=== PATIENT | female | born 1985 | race Caucasian/White ===

== ENCOUNTER 2017-10-31 20:50 | Outpatient (CLI) | payer MEDICAID, SELFPAY ==
[2017-10-31 21:14] VITALS: BMI 32.9
--- NOTE | 2017-10-31 21:33 | OB.TRI.NOTE ---
History of Present Illness Reason For Visit: DECREASED MOVEMENT Date of Service: 10/31/17 Gestational age: 36 History of Present Illness: 31yo G1 @ 35+ wga with c/o decreased movement. She last felt movement approximately 2 hours ago. She reports nausea and vomiting starting last night at 8pm and followed by diarrhea with chills and subjective fever. She had approximately 5-7 bouts of loose, watery stool. Last loose stool 3 hours ago. Denies recent antibiotics or exposure to C. diff. 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 She denies dysuria, urinary frequency, hematuria. She had scant blood in stool. No prior h/o hemorrhoids. +vaginal bleeding on underwear earlier today, but did not require a pad. Denies leaking of fluid or contractions, shortness of breath, cough, chest pain, sore throat. Home Medications Medication Instructions Recorded Docusate Sodium [Stool Softener] 50 mg PO DAILY 10/31/17 Pantoprazole Sodium [Protonix] 40 mg PO DAILY 10/31/17 Vits [Prenatabs FA] 1 tablet PO DAILY 10/31/17 Venlafaxine HCl [Effexor] 225 mg PO DAILY 10/31/17 Allergies amoxicillin Allergy (Verified 10/31/17 21:30) Hives acetaminophen [From Vicodin] Adverse Reaction (Verified 10/31/17 21:30) Other duloxetine [From Cymbalta] Adverse Reaction (Verified 10/31/17 21:30) Other hydrocodone [From Vicodin] Adverse Reaction (Verified 10/31/17 21:30) Other promethazine [From Phenergan] Adverse Reaction (Verified 10/31/17 21:30) Other - Pertinent Past Medical History Pertinent Past Medical History: Cholecystectomy Appendectomy Laparoscopy x 4 for endometriosis Laparotomy Physical Exam Vitals: Afebrile, P 116 bpm General: Alert, Oriented x3, Cooperative, No apparent distress Cardiovascular: Regular rate, Regular Rhythm, Normal S1, Normal S2 Lungs: Clear to auscultation, Normal air movement Abdomen: Soft, Non Tender, Non-Distended, Gravid Extremities:: No edema Estimated gestational size: Appropriate for gestational size Cervix Dilation (cm): 0 - SSE - cervical and vaginal normal appearing without lesions, no blood present Station: -3 Effacement (%): 0 NST - FHR Rate Baby A Baseline: 165 bpm Variability:: Moderate Accelerations:: 15 x 15 Decelerations:: None NST Reactive:: Yes FHR Category:: Category II Uterine Activity:: 1-2/10 min Impression/Plan 31yo G1 @ 35wga with gastroenteritis, decreased movement, Cat II FHR -Likely viral gastroenteritis - benign abdominal exam and nontender -Send U/A, CBC, CMP -IV fluid hydration -Continuous monitoring Code Visit Office Visits / Consults: [id number] OV L3 New
--- NOTE | 2017-10-31 21:43 | OB.TRI.HP_ITS ---
History of Present Illness Reason For Visit: DECREASED MOVEMENT Date of Service: 10/31/17 Gestational age: 36 History of Present Illness: 31yo G1 @ 35+ wga with c/o decreased movement. She last felt movement approximately 2 hours ago. She reports nausea and vomiting starting last night at 8pm and followed by diarrhea with chills and subjective fever. She had approximately 5-7 bouts of loose, watery stool. Last loose stool 3 hours ago. Denies recent antibiotics or exposure to C. diff. 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 She denies dysuria, urinary frequency, hematuria. She had scant blood in stool. No prior h/o hemorrhoids. +vaginal bleeding on underwear earlier today , but did not require a pad. Denies leaking of fluid or contractions, shortness of breath, cough, chest pain, sore throat. Home Medications Medication Instructions Recorded Docusate Sodium [Stool Softener] 50 mg PO DAILY 10/31/17 Pantoprazole Sodium [Protonix] 40 mg PO DAILY 10/31/17 Vits [Prenatabs FA] 1 tablet PO DAILY 10/31/17 Venlafaxine HCl [Effexor] 225 mg PO DAILY 10/31/17 Allergies amoxicillin Allergy (Verified 10/31/17 21:30) Hives acetaminophen [From Vicodin] Adverse Reaction (Verified 10/31/17 21:30) Other duloxetine [From Cymbalta] Adverse Reaction (Verified 10/31/17 21:30) Other hydrocodone [From Vicodin] Adverse Reaction (Verified 10/31/17 21:30) Other promethazine [From Phenergan] Adverse Reaction (Verified 10/31/17 21:30) Other - Pertinent Past Medical History Pertinent Past Medical History: Cholecystectomy Appendectomy Laparoscopy x 4 for endometriosis Laparotomy Physical Exam Vitals: Afebrile, P 116 bpm General: Alert, Oriented x3, Cooperative, No apparent distress Cardiovascular: Regular rate, Regular Rhythm, Normal S1, Normal S2 Lungs: Clear to auscultation, Normal air movement Abdomen: Soft, Non Tender, Non-Distended, Gravid Extremities:: No edema Estimated gestational size: Appropriate for gestational size Cervix Dilation (cm): 0 - SSE - cervical and vaginal normal appearing without lesions, no blood present Station: -3 Effacement (%): 0 NST - FHR Rate Baby A Baseline: 165 bpm Variability:: Moderate Accelerations:: 15 x 15 Decelerations:: None NST Reactive:: Yes FHR Category:: Category II Uterine Activity:: 1-2/10 min Impression/Plan 31yo G1 @ 35wga with gastroenteritis, decreased movement, Cat II FHR -Likely viral gastroenteritis - benign abdominal exam and nontender -Send U/A, CBC, CMP -IV fluid hydration -Continuous monitoring Code Visit Office Visits / Consults: [id number] OV L3 New
[2017-10-31] MEDS: Lactated Ringers 1,000 ML 250 ML IV ×2 (21:50→23:17)
[2017-10-31 22:00] LABS: Hematocrit 37.8 % (37-47); Hemoglobin 12.7 g/dl (12.0-15.0); Mean Corp Hgb Conc 33.6 g/gl (32-36); Mean Corpuscular Hgb 31.4 pg (27.0-32.0); Mean Corpuscular Volume 93.3 fL (81-99); Mean Platelet Vol. 11.3 fl (6.2-12.0); Platelet Count 220 K/mm3 (150-450); RBC Distribution Width CV 13.5 % (11.6-14.6); RBC Distribution Width SD 45.9 fl (35.1-43.9); Red Blood Count 4.05 M/mm3 (4.2-5.4); White Blood Count 9.7 K/mm3 (4.4-11.0)
[2017-10-31 22:01] LABS: Scan Indicated on CBC? Y/N NO
[2017-10-31 22:17] LABS: ALB/GLOB Ratio 0.6 RATIO (0.9-2.4); AST(SGOT) 35 U/L (15-37); Alanine Aminotransfer ALT/SGPT 29 U/L (13-56); Albumin, Serum 2.3 g/dL (3.2-5.0); Alkaline Phosphatase 256 U/L (45-117); Anion Gap 11 (5-15); BUN 8 mg/dL (7-18); Calcium,Total 8.7 mg/dL (8.5-10.1); Chloride 104 mmol/L (98-107); EST Glomerular Filtration Rate 89 mL/min (>60); Est Glom Filt Rate - Afr Amer 108 mL/min (>60); Estimated Creatinine Clearance 103.73 ml/min; Globulin 3.7 g/dL (2.2-4.2); Glucose 88 mg/dL (74-106); Potassium 3.7 mmol/L (3.5-5.1); Sodium Level 136 mmol/L (136-145)
[2017-10-31 22:58] LABS: Mucous, Urine 0 SEEN /hpf (<or=2+); Red Blood Cells-Urine 0 SEEN /hpf (0-5)
[2017-10-31 23:06] LABS: Color, Urine Straw (Yellow); Glucose, Dipstick Normal (Normal); Ketone-Dipstick Negative (Negative); Leukocyte Esterase-Dipstick Negative /ul (Negative); Nitrite-Dipstick Negative (Negative); Occult Blood-Urine Negative /ul (Negative); Protein-Dipstick Negative (Negative); Urine Bilirubin Dipstick Negative (Negative); Urine Clarity Sl. Cloudy (Clear); Urine Urobilinogen Normal (Normal); Urine pH 6.5 (5.0 - 8.0)
[2017-10-31 23:20] LABS: Bacteria 1+ /hpf (None Seen); Squamous Epithelial Cells - UA 0-5 SEEN /hpf (5-10)
[2017-10-31 23:21] LABS: White Blood Cells 0-5 SEEN /hpf (0-5)
[2017-10-31 23:22] LABS: Transitional Epithelial - Ur 0-5 SEEN /hpf (0-5)
--- NOTE | 2017-11-01 07:46 | OB.TRI.PN ---
Progress Notes DATE OF SERVICE: 11/01/17 Progress Note: Labs reviewed and wnl. IV fluid hydration administered with PO trial. No further bouts of vomiting or diarrhea during hospitalization and tolerated PO. Notified by RN at approximately 0130h that FHR improved to Cat I with tachycardia resolved. Patient discharged to home. On my review, NST 150, moderate variability, + accelerations, no deceleration. Contractions 2/10 min.
== END 2017-11-01 01:40 | disposition home or self-care (01) ==
LOC: WPOUT 21:10 → WP 21:11
PROVIDERS: Family Provider Family Medicine; PCP Family Medicine; Visit Provider Obstetrics & Gynecology
DX: O36.8130 Decreased fetal movements, third trimester, not applicable or unspecified (principal); O99.613 Diseases of the digestive system complicating pregnancy, third trimester; K52.9 Noninfective gastroenteritis and colitis, unspecified; K92.1 Melena; Z3A.35 35 weeks gestation of pregnancy
CPT/HCPCS: 96360; 36415; 59025; 59050; 80053; 81001; 85027; 99218; J7120; G0378

== ENCOUNTER → 2017-11-03 14:13 | Outpatient (CLI) | payer MEDICAID, SELFPAY ==
[2017-10-31 21:14] VITALS: BMI 32.9
[2017-11-03 16:56] LABS: Group B Strep DNA By PCR POSITIVE (Negative); Probe Check PASS
== END ==
PROVIDERS: Visit Provider Obstetrics & Gynecology
DX: Z36.85 Encounter for antenatal screening for Streptococcus B (principal)
CPT/HCPCS: 87653

== ENCOUNTER 2017-11-22 21:50 | Inpatient (IN) | payer MEDICAID, SELFPAY ==
[2017-11-22 15:25] VITALS: BMI 34.3
[2017-11-22 15:56] LABS: Color, Urine Yellow (Yellow); Glucose, Dipstick Normal (Normal); Ketone-Dipstick Negative (Negative); Leukocyte Esterase-Dipstick 25 /ul (Negative); Nitrite-Dipstick Negative (Negative); Occult Blood-Urine Negative /ul (Negative); Protein-Dipstick Negative (Negative); Specific Gravity, Urine 1.005 (1.002-1.030); Urine Bilirubin Dipstick Negative (Negative); Urine Clarity Clear (Clear); Urine Urobilinogen Normal (Normal)
[2017-11-22 16:25] LABS: Hematocrit 37.7 % (37-47); Hemoglobin 12.8 g/dl (12.0-15.0); Mean Corpuscular Hgb 31.6 pg (27.0-32.0); Mean Corpuscular Volume 93.1 fL (81-99); Mean Platelet Vol. 11.6 fl (6.2-12.0); Platelet Count 211 K/mm3 (150-450); RBC Distribution Width CV 13.2 % (11.6-14.6); RBC Distribution Width SD 43.3 fl (35.1-43.9); Red Blood Count 4.05 M/mm3 (4.2-5.4); White Blood Count 11.5 K/mm3 (4.4-11.0)
[2017-11-22 16:28] LABS: Scan Indicated on CBC? Y/N NO
[2017-11-22 16:43] LABS: AST(SGOT) 28 U/L (15-37); Alanine Aminotransfer ALT/SGPT 26 U/L (13-56); Creatinine, Serum 0.66 mg/dL (0.55-1.02); EST Glomerular Filtration Rate 111 mL/min (>60); Est Glom Filt Rate - Afr Amer 135 mL/min (>60); Estimated Creatinine Clearance 125.73 ml/min; Uric Acid 5.7 mg/dL (2.6-6.0)
[2017-11-22 16:53] LABS: Creatinine, Urine (random) < 13.00 mg/dL (NO RANGE EST.); Protein, Urine (Random) < 6.0 mg/dL (<11.9)
[2017-11-22 17:06] LABS: International Normalized Ratio 0.9; Partial Thromboplast Time 27.1 Seconds (24.1-36.2); Prothrombin Time (Protime)PT. 12.1 SECONDS (11.7-14.9)
[2017-11-22] MEDS: Nalbuphine 10 MG/ML Ampul IV (21:15)
[2017-11-22] MEDS: Methylergonovine 0.2 MG/ML Ampul IM (23:49)
[2017-11-22] MEDS: Oxytocin 30 units/NS 500 ml 30 UNITS/500 ML IV.SOLN 334 UNITS IV (23:50)
[2017-11-22] MEDS: miSOPROStol 200 MCG Tablet 400 MCG RECTAL (23:50)
--- NOTE | 2017-11-23 00:01 | PCM.OB.VAG ---
Vaginal Delivery Maternal Presentation: Active Labor Amniotic Membrane Rupture Type: Spontaneous Amniotic Fluid Description: Clear Final FUAD: 12/05/17 Final FUAD Source: US <20 weeks Gestational age: 38 Weeks and 2 Days Date of Procedure: 11/22/17 Pre-Operative Diagnosis: IUP Post-Operative Diagnosis: IUP Surgery/ Procedure Performed: Spontaneous Vaginal Delivery Type of Anesthesia: None Description of Procedure: Spontaneous vaginal delivery of a viable female with Apgars of 8/9 with a 3 vessel normal placenta with cord around the neck ?1 tight. No episiotomy. First-degree midline laceration repaired with 3-0 rapide suture. Sponge counts okay. Delivery physician: Tin Mccormick MD. Presentation: Vertex Placental Delivery Description: Spontaneous Placenta Disposition: [facility] Cord Vessel Description: 3 Vessels Cord Gases drawn per routine: ABG Cord Entanglement: Around neck x 1, tight Estimated Blood Loss: 250 cc Infant A gender: Female (1 minute): 8 (5 minute): 9 Episiotomy Description: None Laceration: Midline, Perineal Extension/lac, 1st degree Medications given after delivery: IV Pitocin, - - 400 mg rectal Cytotec Complications: None
--- NOTE | 2017-11-23 00:06 | DCINST_ITS ---
Discharge Diet: No Restrictions Discharge Activity: May Shower, May Take a Tub Bath May resume sexual activity in: 4-6 weeks Additional Activity Instructions:: Nothing in the vagina for 4-6 weeks. You may return to work/school in 6 weeks. Call your doctor if you observe: Fever of 101 or Higher, Inability to urinate, Inability to have a bowel movement, Using more than one pad per hour Additional Instructions: If you experience any of the following, contact your healthcare provider. * Bleeding that soaks a pad every hour for 2 hours * Unrelieved incision or abdominal pain * Swelling, redness, discharge or bleeding from your incision or episiotomy site * Your incision begins to separate * Problems urinating (including inability to urinate or burning while urinating) . * Visual changes * Severe headache * Flu-like symptoms * Pain or redness in one of both of your breasts * Pain, warmth, tenderness or swelling in your legs, especially the calf area * Frequent nausea and vomiting * Symptoms of depression or anxiety If you experience any of the following, call 911 or go to the nearest Emergency Room. * Chest pain * Problems breathing * Seizure activity * Partial or complete paralysis of a body part, slurred speech, weakness or drooping of the face, or a sudden inability to walk or hold your balance Allergies/Adverse Reactions: Allergies amoxicillin Allergy (Verified 10/31/17 21:30) Hives acetaminophen [From Vicodin] Adverse Reaction (Verified 10/31/17 21:30) Other duloxetine [From Cymbalta] Adverse Reaction (Verified 10/31/17 21:30) Other hydrocodone [From Vicodin] Adverse Reaction (Verified 10/31/17 21:30) Other promethazine [From Phenergan] Adverse Reaction (Verified 10/31/17 21:30) Other Medications to take at Discharge Docusate Sodium [Stool Softener] 50 mg PO DAILY 10/31/17 Pantoprazole Sodium [Protonix] 40 mg PO DAILY 10/31/17 Vits [Prenatabs FA] 1 tablet PO DAILY 10/31/17 Venlafaxine HCl [Effexor] 225 mg PO DAILY 10/31/17 Please Follow Up With: Tsering Barney MD - [phone] When: Call to make an appointment with your doctor in 6 weeks. Primary Care Physician: Yuniel Og [Primary Care Provider] -
[2017-11-23] MEDS: Oxytocin 30 units/NS 500 ml 30 UNITS/500 ML IV.SOLN 167 UNITS IV (00:30)
[2017-11-23 04:00] VITALS: BP 145/92; PULSE 83; RESP 18; TEMP 35.7; O2SAT 96
--- NOTE | 2017-11-23 07:48 | PN.OBGYN_ITS ---
Subjective: PPD#0 to 1 Delivered approx 23:30 last night Doing well Minimal pain. Bleeding as a heavy period. Plans to nurse. Relates rapid labor. No time for Nubain to take effect. Presented closed cervix, UCs , with HTN - Physical Exam General: Alert, Oriented x3, Cooperative, No apparent distress HEENT: Atraumatic Neck: Supple Abdomen: Soft - Fundus firm NT inferior to umbilicus Neurological: Cranial nerves II-XII grossly intact Psych/Mental Status: Normal Affect Vital Signs Temp Pulse Resp BP Pulse Ox 96.2 F L 83 18 145/92 H 96 11/23/17 04:00 11/23/17 04:00 11/23/17 04:00 11/23/17 04:00 11/23/17 04:00 Oxygen Delivery Method Room Air Weight: 102.5 kg Body Mass Index (BMI) 34.3 Laboratory Tests Past 24 Hrs 11/22/17 11/22/17 11/22/17 15:30 16:05 16:05 WBC 11.5 H RBC 4.05 L Hgb 12.8 Hct 37.7 MCV 93.1 MCH 31.6 MCHC 34.0 RDW 13.2 RDW Differential 43.3 Plt Count 211 MPV 11.6 PT 12.1 INR 0.9 APTT 27.1 Creatinine Estim Creat Clear Calc Est GFR (MDRD) Af Amer Est GFR (MDRD) Non-Af Uric Acid AST ALT Urine Color Yellow Urine Clarity Clear Urine pH 7.0 Ur Specific [place] 1.005 Urine Protein Negative Urine Glucose (UA) Normal Urine Ketones Negative Urine Occult Blood Negative Urine Nitrite Negative Urine Bilirubin Negative Urine Urobilinogen Normal Ur Leukocyte Esterase 25 H U Random Total Protein Urine Creatinine Protein/Creatinin Ratio Blood Type Antibody Screen 11/22/17 11/22/17 11/22/17 16:05 16:05 16:05 WBC RBC Hgb Hct MCV MCH MCHC RDW RDW Differential Plt Count MPV PT INR APTT Creatinine 0.66 Estim Creat Clear Calc 125.73 Est GFR (MDRD) Af Amer 135 Est GFR (MDRD) Non-Af 111 Uric Acid 5.7 AST 28 ALT 26 Urine Color Urine Clarity Urine pH Ur Specific [place] Urine Protein Urine Glucose (UA) Urine Ketones Urine Occult Blood Urine Nitrite Urine Bilirubin Urine Urobilinogen Ur Leukocyte Esterase U Random Total Protein < 6.0 Urine Creatinine < 13.00 Protein/Creatinin Ratio TNP Blood Type O POSITIVE Antibody Screen NEGATIVE Assessment/Plan PPD#0 to 1 delivered just prior to MN last night Stable pp. continue care.
[2017-11-23 07:49] VITALS: BP 136/88; PULSE 103; RESP 16; TEMP 36.3; O2SAT 100
[2017-11-23] MEDS: Ibuprofen 600 MG Tablet PO ×2 (08:00→17:03)
[2017-11-23] MEDS: Pantoprazole Sodium 40 MG Tablet PO (09:59)
[2017-11-23] MEDS: Venlafaxine XR 75 MG Capsule 225 MG PO (09:59)
[2017-11-23 12:00] VITALS: BP 127/91; PULSE 108; RESP 16; TEMP 36.7; O2SAT 97
[2017-11-23 14:41] VITALS: BP 120/81; PULSE 113; RESP 18; TEMP 36.7; O2SAT 98
[2017-11-23 17:06] VITALS: BP 129/86; PULSE 112; RESP 18; TEMP 37.4; O2SAT 99
--- NOTE | 2017-11-23 17:49 | PCM.PN.BLA ---
Progress Note Repeating CBC in am. Baby in SCN due to poor feeding . Pt with 99 deg temp. Continue to observe. Exam this am wnl and no infection suspected.
[2017-11-23 21:00] VITALS: BP 116/80; PULSE 100; RESP 18; TEMP 36.3
[2017-11-23] MEDS: oxyCODONE 5 MG Tablet PO (21:08)
[2017-11-23] MEDS: 0.9% Saline Lock 10 ML Syringe IV (22:02)
[2017-11-24 02:45] VITALS: BP 121/79; PULSE 80; RESP 16; TEMP 36.5
[2017-11-24 05:46] LABS: Hematocrit 32.4 % (37-47); Hemoglobin 10.6 g/dl (12.0-15.0); Mean Corp Hgb Conc 32.7 g/gl (32-36); Mean Corpuscular Hgb 31.3 pg (27.0-32.0); Mean Corpuscular Volume 95.6 fL (81-99); Mean Platelet Vol. 11.1 fl (6.2-12.0); Platelet Count 189 K/mm3 (150-450); RBC Distribution Width CV 13.7 % (11.6-14.6); RBC Distribution Width SD 47.2 fl (35.1-43.9); Red Blood Count 3.39 M/mm3 (4.2-5.4)
[2017-11-24 05:58] LABS: Scan Indicated on CBC? Y/N NO
--- NOTE | 2017-11-24 08:08 | PCM.PN.OB ---
Subjective: PPD#1 GBS positive and inadequate interval from ABX until delivery Doing well. Pain control adequate. No concerns voiced. Baby in SCN now with IV abx pending cultures. - Physical Exam General: Alert, Oriented x3, Cooperative, No apparent distress HEENT: Atraumatic Neck: Supple Abdomen: Soft - fundus firm NT inferior to umbilicus x 2 cm Neurological: Cranial nerves II-XII grossly intact Psych/Mental Status: Normal Affect Vital Signs Temp Pulse Resp BP Pulse Ox 97.7 F L 80 16 121/79 H 99 11/24/17 02:45 11/24/17 02:45 11/24/17 02:45 11/24/17 02:45 11/23/17 17:06 Oxygen Delivery Method Room Air Weight: 102.5 kg Body Mass Index (BMI) 34.3 Laboratory Tests Past 24 Hrs 11/24/17 05:30 WBC 14.0 H RBC 3.39 L Hgb 10.6 L Hct 32.4 L MCV 95.6 MCH 31.3 MCHC 32.7 RDW 13.7 RDW Differential 47.2 H Plt Count 189 MPV 11.1 Assessment/Plan PPD# 1 delivered just prior to MN one night ago Stable pp. continue care. Baby in SCN and on abx. Tachypnea as reason for transfer and for workup.
[2017-11-24 08:45] VITALS: BP 120/84; BP 141/92; PULSE 114; RESP 20; TEMP 36.4; O2SAT 96
[2017-11-24] MEDS: Ibuprofen 600 MG Tablet PO ×2 (08:51→18:52)
[2017-11-24] MEDS: Senna/Docusate Sodium 1 Tablet PO (08:51)
[2017-11-24] MEDS: Pantoprazole Sodium 40 MG Tablet PO (11:37)
[2017-11-24] MEDS: Venlafaxine XR 75 MG Capsule 225 MG PO (11:37)
[2017-11-24 16:30] VITALS: BP 136/85; PULSE 96; RESP 20; TEMP 37.1
--- NOTE | 2017-11-26 17:00 | CASEMGMT ---
Social Work Note - Labor and Delivery Patient/mother of baby (VALENTINO) was discharged on 11.24.2017 to hotel status, receiving a courtesy room on the Labor and Delivery Unit at [facility], as admitted to [facility] for further care and treatment. MOB to receive a courtesy room so as to remain at hospital to help care for and galarza with baby. Prior to discharge nursing did notify this fiction and nonfiction prose writer of MOB's history of depression and current medication of Effexor. This fiction and nonfiction prose writer able to sit down with MOB on 11.26.2017, gathered psychosocial information, discussed stressors, and reviewed some resources. Topic of depression and anxiety also broached with MOB, who was intermittently tearful during social science manager visit. Summary: MOB is a single mother, paternity is unknown, though MOB does know both possibilities for father. MOB reports to feel pressured by family to seek out paternity testing for child support. MOB reports some ambivalence with this, and is not sure that wants to seek out paternity. MOB reports to feel will be able to make it without child support. MOB reports to have some worries about finances, as MOB was denied for short term disability through work, though reports MOB's parents are willing to help out. MOB is trying to finish school and will only be taking about 2 weeks off of school before returning to [facility] [employer] [facility]. However, MOB reports plan to take 6 weeks off of work. 's maternal grandmother will be helping with childcare when MOB is at school and work. MOB reports it is hard to ask for accept help, but has been doing so with family. Note, MOB reports will only be in own apartment for until the end of December, lease is up then, so MOB will move into parents home. MOB reports doesn't really want to do this, but knows for support and to help MOB save money and get on feet with a new baby this will be important. MOB will be moving from [facility] to [facility] at that time. Behavioral Health: MOB reports history of depression and anxiety, has remained on medication during . Per record, treated with Effexor XR 150mg and Trazodone. MOB reports intention to continue on medication in the period. MOB denies any history of suicidal thoughts, plans, or attempts. MOB reports currently seeing a nurse practitioner for medications through [facility], with next scheduled appointment on 12.16.2017. History of counseling reported, but no current therapist. MOB reports to feel connected to and to love the baby. MOB denies any illicit drug use history. MOB reports social alcohol use, not during . MOB is a former tobacco smoker. Supports: MOB reports that 's maternal grandmother is a strong support to MOB for both practical and emotional support. MOB reports to have a couple of sisters, and some friends, and classmates who would help if MOB asked. MOB reports to have neighbors right now who have been helping to take care of MOB's cat. Assessment MOB reports to feel connected to baby, to love baby. MOB did admit that took a little time to adjust to the idea of being , as MOB thought after being on control for so long and with endometriosis, that MOB had time before able to get . MOB reports did accept soon after realization of being . MOB reports to have needed baby supplies for baby, but still needs to get formula. MOB reports to have adequate support from family, and even some friends, MOB just needs to ask for and accept help. MOB tearful during conversation with social science manager, which started when issue of paternity broached. MOB intermittently tearful after that. MOB non-defensive in conversation, held good eye contact, and appeared open to conversation as evidenced by willingness to talk about Sensitive subjects. MOB expressed that she understands to be a risk for depression, and that this has been something that has been worried about. MOB agreed to consider referrals to [facility] and referral back to a counselor. Talked with MOB about some resources which may be of assistance to MOB when out of the hospital. MOB did talk about stress from NICU stay, some worries about being alone, as well as stress from hospital environment. Talked with MOB about taking some time each day to step off the unit for a short time, such as to get some fresh air to a small walk in the hospital. MOB talked of guilt over not being in the NICU with baby, but listened to social science manager encouragement of need for self care as well. Validated and supported MOB's wish to be present for and galarza with baby, but also encouraged benefit of self care. PLAN: MOB was discharged from [facility] on 11.24.2017. MOB is being given community resource information for both [facility], [facility] information, and depression packet. MOB is connected with psychiatry at [facility], and reports to know that can refer self back to counseling if so wishes in the future.
== END 2017-11-24 19:00 | disposition home or self-care (01) | DRG 372 ==
LOC: WPOUT 22:01
PROVIDERS: Obstetrics & Gynecology; Admitting Provider Obstetrics & Gynecology; Family Provider Family Medicine; PCP Family Medicine; Visit Provider Obstetrics & Gynecology
DX: O16.3 Unspecified maternal hypertension, third trimester (principal); O69.1XX0 Labor and delivery complicated by cord around neck, with compression, not applicable or unspecified; O99.824 Streptococcus B carrier state complicating childbirth; O70.0 First degree perineal laceration during delivery; O99.334 Smoking (tobacco) complicating childbirth; Z79.899 Other long term (current) drug therapy; Z3A.38 38 weeks gestation of pregnancy; Z37.0 Single live birth
CPT/HCPCS: 59025; 59050; 81002; 82565; 82570; 84156; 84450; 84460; 84550; 85027; 85610; 85730; 86850; 86900; A4216

== ENCOUNTER → 2018-08-15 12:12 | Outpatient (CLI) | payer MEDICAID, SELFPAY ==
[2018-08-15 12:12] VITALS: BMI 32.9
--- NOTE | 2018-08-15 12:30 | RAD_ITS ---
STUDY: X-RAY - LUMBAR SPINE REASON FOR EXAM: Female, 32 years old. Low back pain TECHNIQUE: 3 view(s) of the lumbar spine were obtained. COMPARISON: None FINDINGS: Normal lumbar lordosis. There is no substantial scoliosis. There is a normal alignment of the vertebrae. Normal vertebral bodies and endplates. Normal disc space heights. The soft tissue structures are unremarkable. RAD/Lumbar Spine 2 or 3 Views IMPRESSION: Normal x-ray examination of the lumbar spine. Electronically Signed: Doc Phipps MD at 20:11 EST , Service support ,
== END ==
PROVIDERS: Family Provider Family Medicine; PCP Family Medicine; Referring Provider Anesthesiology Pain Medicine; Visit Provider Anesthesiology Pain Medicine
DX: M54.9 Dorsalgia, unspecified (principal)
CPT/HCPCS: 72100

== ENCOUNTER → 2020-06-27 10:15 | Outpatient (CLI) | payer BC, SELFPAY ==
[2018-08-15 12:12] VITALS: BMI 32.9
[2020-06-29 03:07] LABS: Chlamydia By Nucleic Acid AMP Negative (Negative)
[2020-06-29 06:09] LABS: Gonococcus By Nucleic Acid AMP Negative (Negative)
[2020-07-02 17:14] LABS: HPV APTIMA, High Risk Negative (Negative); HPV Reflexed? YES, CHARGE PATIENT
== END ==
PROVIDERS: PCP Family Medicine; Visit Provider Student in an Organized Health Care Education/Training Program
DX: Z12.4 Encounter for screening for malignant neoplasm of cervix (principal); Z11.3 Encounter for screening for infections with a predominantly sexual mode of transmission
CPT/HCPCS: 87491; 87591; 87624; 88175; G0145

== ENCOUNTER → 2021-09-10 11:11 | Outpatient (CLI) | payer OTHER, SELFPAY ==
--- NOTE | 2021-09-10 11:13 | US_ITS ---
STUDY: ULTRASOUND OF THE FEMALE PELVIS - COMPLETE REASON FOR EXAM: Female, 35 years old. aub LMP: 08/13/2021. TECHNIQUE: Transabdominal and Transvaginal TECHNICAL QUALITY: Adequate. COMPARISON: None. FINDINGS: The uterus is retroflexed and is in a midline position. The uterus measures 8.9cm x 5.6 cm x 5.1 cm. There is a Nabothian cyst of the cervix. The endometrium measures 9.9 mm in thickness, and is hyperechoic. There is no demonstrated endometrial mass. There is a 3.5 cm x 2.6 x 2.6 cm fundal fibroid. I.U.D. - The patient does not have an I.U.D. The right ovary is visualized. The right ovary measures 3.1 cm x 2.8 cm x 2.2 cm. There is no right ovarian cyst or ovarian mass. There is no visualized right adnexal mass or complex lesion. There is normal arterial and normal venous vascularity. The left ovary is visualized. The left ovary measures 4.2 cm x 3 cm x 2.7 cm. There is a 2.6 cm x 2.27 x 1.8 cm left ovarian cyst. There is no visualized left adnexal mass or complex lesion. There is normal arterial and normal venous vascularity. There is no fluid in the cul-de-sac. The pre void volume of the bladder was 190 ml. US/Transvaginal Non- IMPRESSION: 3.5 cm x 2.6 cm x 2.6 cm uterine fibroid. 2.6 cm x 2.2 cm x 1.8 cm left ovarian cyst. Electronically Signed: Arturo Sargent MD at 12:36 EST , Service support ,
--- NOTE | 2021-09-10 11:13 | US_ITS ---
STUDY: ULTRASOUND OF THE FEMALE PELVIS - COMPLETE REASON FOR EXAM: Female, 35 years old. aub LMP: 08/13/2021. TECHNIQUE: Transabdominal and Transvaginal TECHNICAL QUALITY: Adequate. COMPARISON: None. FINDINGS: The uterus is retroflexed and is in a midline position. The uterus measures 8.9cm x 5.6 cm x 5.1 cm. There is a Nabothian cyst of the cervix. The endometrium measures 9.9 mm in thickness, and is hyperechoic. There is no demonstrated endometrial mass. There is a 3.5 cm x 2.6 x 2.6 cm fundal fibroid. I.U.D. - The patient does not have an I.U.D. The right ovary is visualized. The right ovary measures 3.1 cm x 2.8 cm x 2.2 cm. There is no right ovarian cyst or ovarian mass. There is no visualized right adnexal mass or complex lesion. There is normal arterial and normal venous vascularity. The left ovary is visualized. The left ovary measures 4.2 cm x 3 cm x 2.7 cm. There is a 2.6 cm x 2.27 x 1.8 cm left ovarian cyst. There is no visualized left adnexal mass or complex lesion. There is normal arterial and normal venous vascularity. There is no fluid in the cul-de-sac. The pre void volume of the bladder was 190 ml. US/Pelvic (Non ) IMPRESSION: 3.5 cm x 2.6 cm x 2.6 cm uterine fibroid. 2.6 cm x 2.2 cm x 1.8 cm left ovarian cyst. Electronically Signed: Arturo Sargent MD at 12:36 EST , Service support ,
[2021-09-11 22:07] LABS: Chlamydia By Nucleic Acid AMP Negative (Negative)
[2021-09-12 08:08] LABS: Gonococcus By Nucleic Acid AMP Negative (Negative)
== END ==
PROVIDERS: PCP Physician Assistant; Referring Provider Obstetrics & Gynecology; Visit Provider Obstetrics & Gynecology
DX: N93.9 Abnormal uterine and vaginal bleeding, unspecified (principal); D25.9 Leiomyoma of uterus, unspecified; N83.202 Unspecified ovarian cyst, left side
CPT/HCPCS: 76830; 76856; 87491; 87591

== ENCOUNTER → 2021-09-25 12:53 | Outpatient (CLI) | payer OTHER, SELFPAY ==
--- NOTE | 2021-09-25 12:57 | RAD_ITS ---
STUDY: X-RAY - RIGHT KNEE REASON FOR EXAM: Female, 35 years old. KNEE PAIN TECHNIQUE: 2 view(s) of the knee. COMPARISON: None. FINDINGS: Normal visualized distal femur. Normal visualized proximal tibia and fibula. Normal proximal tibiofibular articulation. Normal medial femorotibial compartment. Normal lateral femorotibial compartment. Normal patellofemoral articulation. The soft tissue structures are unremarkable. RAD/Knee 1 or 2 Views IMPRESSION: Normal x-ray examination of the knee. Electronically Signed: Joao Oseguera MD at 13:51 EST Tel , Service support ,
--- NOTE | 2021-09-25 13:03 | RAD_ITS ---
STUDY: X-RAY - LEFT KNEE REASON FOR EXAM: Female, 35 years old. KNEE PAIN TECHNIQUE: 2 view(s) of the knee. COMPARISON: None. FINDINGS: Normal visualized distal femur. Normal visualized proximal tibia and fibula. Normal proximal tibiofibular articulation. Normal medial femorotibial compartment. Normal lateral femorotibial compartment. Normal patellofemoral articulation. The soft tissue structures are unremarkable. RAD/Knee 1 or 2 Views IMPRESSION: Normal x-ray examination of the knee. Electronically Signed: Joao Oseguera MD at 13:51 EST Tel , Service support ,
== END ==
PROVIDERS: PCP Physician Assistant; Referring Provider Anesthesiology Pain Medicine; Visit Provider Anesthesiology Pain Medicine
DX: M25.562 Pain in left knee (principal); M25.561 Pain in right knee
CPT/HCPCS: 73560

== ENCOUNTER 2021-10-02 15:18 | Outpatient (CLI) | payer OTHER, SELFPAY ==
[2021-10-02 15:48] LABS: Absolute Lymphocyte Count 3.54 X10^3/uL (0.83-4.51); Absolute Neutrophil Count 6.6 X10^3/uL (2.0-7.7); Basophil# 0.07 X10^3/uL; Basophil% 0.6 % (0-1); Eosinophil# 0.35 X10^3/uL; Eosinophils% 3.1 % (0-5); Hematocrit 44.8 % (37-47); Hemoglobin 14.6 g/dL (12.0-15.0); Lymphocyte # 3.54 X10^3/ul (0.83-4.51); Lymphocyte % 31.6 % (19-41); Mean Corp Hgb Conc 32.6 g/dL (32-36); Mean Corpuscular Hgb 30.7 pg (27.0-32.0); Mean Corpuscular Volume 94.1 fL (81-99); Mean Platelet Vol. 10.2 fl (6.2-12.0); Monocyte# 0.64 X10^3/uL; Monocyte% 5.7 % (0-10); NRBC Flagged by Analyzer 0 % (0-5); Neutrophil # 6.56 X10^3/uL (2.7-7.7); Neutrophil % 58.7 % (47-70); Platelet Count 279 K/mm3 (150-450); RBC Distribution Width CV 12.9 % (11.6-14.6); RBC Distribution Width SD 44.8 fl (35.1-43.9); Red Blood Count 4.76 M/mm3 (4.2-5.4); White Blood Count 11.2 K/mm3 (4.4-11.0)
[2021-10-02 16:19] LABS: T4 Free Direct 0.92 ng/dL (0.76-1.46); Thyroid Stim Hormone (TSH) 0.91 uIU/mL (0.358-3.74)
== END 2021-10-02 23:59 | disposition short-term general hospital (02) ==
LOC: LAB 15:19
PROVIDERS: PCP Physician Assistant; Visit Provider Obstetrics & Gynecology
DX: N93.9 Abnormal uterine and vaginal bleeding, unspecified (principal)
CPT/HCPCS: 36415; 84439; 84443; 85025

== ENCOUNTER 2021-10-08 11:00 | Outpatient (CLI) | payer OTHER, SELFPAY ==
--- NOTE | 2021-10-08 11:30 | MRI_ITS ---
STUDY: MR Spine Lumbar W/O Contrast 10/08/2021 1:30 PM REASON FOR EXAM: Female, 35 years old. Back pain RADICULOPATHY TECHNIQUE: MR Spine Lumbar W/O Contrast Standardized fat and water weighted pulse sequences were obtained. ml of COMPARISON: xr 11.19.18 FINDINGS: T12-L1: Normal endplates. Normal disc height, hydration and morphology. Normal bilateral facet joints. Normal central canal and bilateral lateral recesses. Normal bilateral intervertebral neural foramina. Normal lumbar lordosis. There is no substantial scoliosis. Normal conus medullaris that terminates at the L1. L1-2: Normal endplates. Normal disc height, hydration and morphology. There is bilateral facet arthropathy. Normal central canal and bilateral lateral recesses. Normal bilateral intervertebral neural foramina. L2-3: Normal endplates. Normal disc height, hydration and morphology. There is bilateral facet arthropathy. Normal central canal and bilateral lateral recesses. Normal bilateral intervertebral neural foramina. L3-4: There is endplate spondylosis of the vertebral body. Normal disc height and morphology. Normal central canal and intervertebral neuroforamina. There is bilateral ligamentum flavum thickening. There is bilateral facet arthropathy. Disc desiccation. L4-5: There is endplate spondylosis of the vertebral body. Normal disc height and morphology. Normal central canal and intervertebral neuroforamina. There is bilateral ligamentum flavum thickening. There is bilateral facet arthropathy. Disc desiccation. L5-S1: There is endplate spondylosis of the vertebral body. Normal disc height and morphology. Normal central canal and intervertebral neuroforamina. There is bilateral ligamentum flavum thickening. There is bilateral facet arthropathy. Disc desiccation. Normal visualized sacral ala. Normal visualized paraspinous soft tissue structures. MRI/Spine Lumbar (Routine) IMPRESSION: Mild degenerative changes of the lumbar spine from L3 to S1 from bilateral facet arthropathy ligamentum flavum thickening. Electronically Signed: Antonio Ramos MD at 14:17 EST , Service support ,
== END 2021-10-08 23:59 | disposition short-term general hospital (02) ==
PROVIDERS: PCP Physician Assistant; Visit Provider Anesthesiology Pain Medicine
DX: M54.16 Radiculopathy, lumbar region (principal)
CPT/HCPCS: 72148

== ENCOUNTER 2021-10-21 10:48 | Day surgery (SDC) | payer OTHER, SELFPAY ==
[2021-10-21] VITALS (8 sets, daily range): BP systolic 113–156; BP diastolic 62–99; PULSE 64–83; RESP 16–18; TEMP 35.8–36.6; O2SAT 92–100; BMI 42.1
[2021-10-21 11:31] LABS: Internal QC Validated? YES +Cl - CLEAR BKGD; Pregnancy, Urine Negative Negative
[2021-10-21] MEDS: Lactated Ringers 1,000 ML 15 ML IV ×2 (11:40→13:50)
[2021-10-21] MEDS: Bupivacaine 0.25% 30 ML Vial (12:27)
--- NOTE | 2021-10-21 12:35 | EMB_PTH ---
PATIENT: ZACH POLANCO [place] [facility] [place][id number] AGE/SX: 35/F ROOM: RE10/21/[address]: Dr. Kemi Haynes DO : 1985 BED: DIS: 10/21/2021 SPEC #: [id number] RECD: 10/21/21 13:19 STATUS: LOVE LACHELLE #: [id number] APPLE: 10/21/21 12:[address]: Kemi Haynes DEPT: SURGICAL PATHOLOGY RECD BY: Mikayla Dominguez ENTERED: 10/21/21 14:11 SP TYPE: ENDOM BX/C ED DR: CARON Vidal Tissues: Endometrium, NOS Procedures: Surgery Specimen Level IV HEADER OPERATION: Diagnostic laparoscopy, fulguration of endometriosis PRE-OP DIAGNOSIS: Abnormal uterine bleeding, endometriosis TISSUE SUBMITTED: Endometrial curettings MICROSCOPIC DIAGNOSIS Endometrium, curettings: Proliferative endometrium with focal glandular breakdown. Mild chronic endometritis. Strips of benign superficial endocervix. AM:parker 10/22/2021 MICROSCOPIC DESCRIPTION Slides are reviewed. GROSS DESCRIPTION Received in fixative is one container labeled with the patient's name and designated endometrial curettings. The specimen consists of multiple fragments of jean-pink hemorrhagic soft tissue that in aggregate measure 5 x 3 x 0.3 cm. The entire specimen is submitted in two cassettes. / SJ:parker 10/21/2021 TC:3 CPT: 75781
--- NOTE | 2021-10-21 13:16 | HP.PCM_ITS ---
History and Physical Date of Admission: 10/21/21 :1985 Provider:Dr. 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: No Allergies amoxicillin Allergy (Verified 10/02/21 14:42) Hives acetaminophen [From Vicodin] Adverse Reaction (Verified 10/02/21 14:42) Other duloxetine [From Cymbalta] Adverse Reaction (Verified 10/02/21 14:42) Other hydrocodone [From Vicodin] Adverse Reaction (Verified 10/02/21 14:42) Other promethazine [From Phenergan] Adverse Reaction (Verified 10/02/21 14:42) Other Medications escitalopram oxalate 20 mg tablet 20 mg PO DAILY 09/10/21 [History Confirmed 10/02/21] meloxicam 7.5 mg tablet 7.5 mg PO DAILY 09/10/21 [History Confirmed 10/02/21] ropinirole 0.25 mg tablet 0.25 mg PO DAILY 09/10/21 [History Confirmed 10/02/21] Post menopausal: No Patient : No : No PFSH Medical History Anxiety Depression Endometriosis History of ovarian cyst Physical exam, pre-employment Surgical History H/O laparoscopy History of cholecystectomy S/P appendectomy S/P bilateral foot surgery Family History Mother Hypertension Father Hypertension Grandmother Breast cancer Social History Smoking Status: Current every day smoker alcohol intake: current substance use type: does not use caffeine: Yes what type of physical activity do you participate in: none seatbelt use: always do you feel safe at home: Yes additional social history: single 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 who presents with the complaint of ongoing abnormal uterine bleeding. She states that she has a long history of endometriosis diagnosed via 4 laparoscopies starting at age 15. She has long menses at times that last 7-22 days. She had one vaginal delivery and is currently not sexually active and not in a relationship. She is uncertain if she wants more kids and wants to discuss treatment options. She has decided that she would like to proceed with a diagnostic laparoscopy to document the severity of her endo in current state and if severe may elect for hysterectomy or letrozole. if mild she wants to try nexplanon. Pregancy History 1 Elective abortions Hx Para 1 Spontaneous abortions Hx # Term Pregnancies Ectopic pregnancies Hx # Pregnancies Multiple births # of living children 1 Past Pregnancies Del. Date Name GA/Weeks Outcome Route Bth Weight Gen Labor Lgth Anesthesia Del Locatn Provider FOB Unknown [place] live - full term Female [facility] ROS Const ROS Unobtainable: All systems reviewed & are unremarkable except as noted in H Resp Resp: Reports system reviewed and no additional complaints, except as documented; Denies cough GI GI: Reports as per HPI Psych Psych: Reports system reviewed and no additional complaints, except as documented Exam Const General: cooperative, healthy appearing, comfortable and no acute distress Resp Effort & Inspection: normal respiratory effort Skin General: no rashes or lesions noted Psych Appearance: grossly normal Speech and Movement: speech and movement normal Coding Level of Care Code Off vis,est,level 4 Diagnoses Endometriosis N80.9 Assessment and Plan Assessment and Plan (1) Endometriosis: Status: Acute Plan - Dr. Kemi Haynes, DO: plan for diagnostic laparoscopy and if normal will proceed with nexplanon insertion in the office. If moderate to severe endo present, she may elect for hysterectomy. UPDATE- I have seen the patient and performed any clinically relevant updates to the history and physical exam. Kemi Haynes DO Assessment & Plan Assessment/Plan (1) Abnormal uterine bleeding: (2) Endometriosis:
--- NOTE | 2021-10-21 13:17 | PCM.OP.BLANK ---
Problems Associated Problem List Diagnoses (1) Abnormal uterine bleeding: (2) Endometriosis: Operative Report Date of Procedure: 10/21/21 Preoperative diagnosis: Pelvic pain, suspicious for pelvic pelvic endometriosis Postoperative diagnosis: Pelvic pain, signs of posterior cul-de-sac endometriosis, abdominal omental adhesions Surgeon: Dr. Kemi Ahn DO Air Traffic [employer] Equipment Repairer: IRENE Tompkins Procedure: Diagnostic laparoscopy fulguration of endometriosis, dilation and curettage, lysis of adhesions Specimens removed: Endometrial curettings Complications: None Implanted materials: None Urine output: 100 cc Estimated blood loss: 30 cc Findings: 10 cm uterus with a polyp-like structure that was removed from the dilation and curettage, endometriosis of the posterior cul-de-sac, abdominal wall omental adhesions. Procedure: The patient was brought to the operating room where general anesthesia was found to be adequate she was prepped and draped in the normal sterile fashion. Her legs were placed in stirrups and a weighted speculum was placed in the vagina. The anterior lip of the cervix was grasped with a single-tooth tenaculum and the uterus was sounded to 10 cm. Sharp curettage was performed in a polyp-like structure was removed during one of the passes the curettage was completed when a gritty texture was noted within the uterus. Approximately 30 cc of bright red blood was noted from the cervix that stopped spontaneously upon completion of the dilation and curettage. A uterine manipulator was then inserted into the cervix and uterus. gloves were changed and attention was turned towards the abdomen. 5 cc of quarter percent bupivacaine was injected into the umbilicus. A 5 mm incision was made with a scalpel followed by a insertion of a 5 mm trocar. This was performed under direct visualization with the laparoscope. CO2 gas was used to insufflate the abdomen and the patient was placed in Trendelenburg position. There was noted to be omental adhesions to the anterior abdominal wall along the aspect of the prior abdominal incision. A 5 mm left upper quadrant port site was placed under direct visualization. A LigaSure device was used to cauterize and cut the omental adhesions away from the abdominal wall. Attention was turned towards the abdomen the uterus was elevated and there was noted to be a mild amount of posterior cul-de-sac adhesions consistent with endometriosis. The adhesions were cauterized and cut using the LigaSure device and small endometriotic lesions were also cauterized using the LigaSure. Further survey of the abdomen showed normal bowel normal liver and normal ovaries and fallopian tubes. The uterus also appeared normal with us with the exception of a filmy material covering the anterior aspect and lower aspect of the uterus. Etiology is unknown but suspect endometriosis. At this point the procedure was ended the trochars were removed under direct visualization and CO2 gas was escape from the abdomen the incisions were closed with a 4-0 Monocryl subcuticular stitch and sealed with surgical glue. The uterine instruments removed from the vagina. The patient tolerated the procedure well sponge lap and needle counts were correct x2 and she is now being brought to the recovery room in stable condition. Multi Select Codes Urinary/Genital Urinary/Genital CPT Codes: 14659 Lysis of adhesions, laproscopic and 93048 Laproscopic ablation endometriosis
--- NOTE | 2021-10-21 13:26 | PCM.DC ---
Discharge Instructions Diet Discharge Diet: No restrictions Activity Discharge Activity: Return to Normal Activity, May Not Drive (for two weeks or while taking narcotic pain medications.), May Shower and May Take a Tub Bath (in 7 days) May resume sexual activity in: 1 week Weight Bearing Status: Full weight bearing Dressing / Incision Call your doctor if you observe: Using more than 1 pad per hour, Shortness of breath, Chest pain and Uncontrolled pain Suture Line Care: Avoid Pulling/Pushing and Avoid Pinching/Bending Remove Dressing in: 1 week (if present) Cleanse incision/area with: Soap & Water and Keep Dressing Clean & Dry Follow Up Care Please Follow Up With: Kemi Haynes DO When: Call to make an appointment with your doctor for a follow up incision check in 1-2 weeks. Test Results: Test results from this visit will be discussed in further detail at your follow-up appointment, if applicable. Discharge Plan Admission Primary Reason for Your Visit: laparoscopy and Dilation/Curettage Attending Provider: Kemi Haynes Primary Care Provider: Mary Parra Discharge Orders/Prescriptions Prescriptions: New oxycodone-acetaminophen [Percocet] 5-325 mg tablet 1 tab PO Q4H PRN (Reason: pain) 3 Days Qty: 18 RF: 0 ibuprofen 800 mg tablet 800 mg PO Q8H PRN (Reason: pain) 7 Days Qty: 30 RF: 0 ondansetron 4 mg tablet,disintegrating 4 mg PO Q8H PRN (Reason: nausea and vomiting) Qty: 20 RF: 0 Continued escitalopram oxalate [Lexapro] 20 mg tablet 20 mg PO DAILY RF: 0 ropinirole 0.25 mg tablet 0.25 mg PO DAILY RF: 0 meloxicam 7.5 mg tablet 7.5 mg PO DAILY RF: 0 Other Ambulatory Orders: 12 Lead EKG (Routine) Timeframe: 20211021 Location: None Selected Ordered By: Dr. Kemi Haynes Referrals / Follow Up: Mary Parra PA [Primary Care Provider] - Disposition Disposition (needs filled in before D/C Order can be placed): Home, Self Care
[2021-10-21] MEDS: oxyCODONE 5 MG Tablet PO (15:12)
== END 2021-10-21 23:59 | disposition home or self-care (01) ==
LOC: SDC 10:51 → AC 10:51
PROVIDERS: PCP Physician Assistant; Referring Provider Obstetrics & Gynecology; Visit Provider Obstetrics & Gynecology
PROC: (CPT 49320; principal; 2021-10-21 12:20)
DX: N80.3 Endometriosis of pelvic peritoneum (principal); M06.9 Rheumatoid arthritis, unspecified; N93.9 Abnormal uterine and vaginal bleeding, unspecified; K66.0 Peritoneal adhesions (postprocedural) (postinfection); F32.A Depression, unspecified; F41.9 Anxiety disorder, unspecified; F17.210 Nicotine dependence, cigarettes, uncomplicated; Z90.49 Acquired absence of other specified parts of digestive tract; Z79.899 Other long term (current) drug therapy; Z86.16 Personal history of COVID-19
CPT/HCPCS: 58662; 00840; 81025; 86850; 86900; 86901; 88305; J7120; J2405

== ENCOUNTER 2021-11-21 14:10 | Outpatient (CLI) | payer OTHER, SELFPAY ==
[2021-11-21 15:32] LABS: Erythrocyte Sedimentation Rate 15 mm/hr (0-30)
[2021-11-21 15:37] LABS: Absolute Lymphocyte Count 4.39 X10^3/uL (0.83-4.51); Absolute Neutrophil Count 5.2 X10^3/uL (2.0-7.7); Basophil# 0.05 X10^3/uL; Basophil% 0.5 % (0-1); Eosinophil# 0.46 X10^3/uL; Eosinophils% 4.3 % (0-5); Hematocrit 44.7 % (37-47); Hemoglobin 15.2 g/dL (12.0-15.0); Lymphocyte # 4.39 X10^3/ul (0.83-4.51); Lymphocyte % 40.8 % (19-41); Mean Corpuscular Hgb 31.8 pg (27.0-32.0); Mean Corpuscular Volume 93.5 fL (81-99); Mean Platelet Vol. 11.1 fl (6.2-12.0); Monocyte# 0.59 X10^3/uL; Monocyte% 5.5 % (0-10); NRBC Flagged by Analyzer 0 % (0-5); Neutrophil # 5.23 X10^3/uL (2.7-7.7); Neutrophil % 48.6 % (47-70); Platelet Count 312 K/mm3 (150-450); RBC Distribution Width CV 12.8 % (11.6-14.6); RBC Distribution Width SD 44.1 fl (35.1-43.9); Red Blood Count 4.78 M/mm3 (4.2-5.4); White Blood Count 10.8 K/mm3 (4.4-11.0)
[2021-11-21 16:05] LABS: AST(SGOT) 23 U/L (15-37); Alanine Aminotransfer ALT/SGPT 32 U/L (13-56); Albumin, Serum 3.8 g/dL (3.2-5.0); Alkaline Phosphatase 137 U/L (45-117); Anion Gap 6 (5-15); BUN 15 mg/dL (7-18); BUN/Creat Ratio 18.2 RATIO (10-20); CRP 5.56 mg/L (0.0-3.0); Calcium,Total 9.3 mg/dL (8.5-10.1); Chloride 106 mmol/L (98-107); Creatinine, Serum 0.82 mg/dL (0.55-1.02); EST Glomerular Filtration Rate 84 mL/min (>60); Est Glom Filt Rate - Afr Amer 102 mL/min (>60); Globulin 3.7 g/dL (2.2-4.2); Glucose 76 mg/dL (74-106); Protein, Total 7.5 g/dL (6.4-8.2); Rheumatoid Factor < 10.0 IU/mL (<15); Sodium Level 138 mmol/L (136-145)
[2021-11-23 16:15] LABS: ANTINUCLEAR ANTIBODIES DIRECT Negative (Negative)
[2021-11-24 09:16] LABS: Hepatitis B Surface Antibody Reactive; Hepatitis B Surface Antigen Non-Reactive (Nonreactive); Hepatitis C Antibody Non-Reactive (Nonreactive)
[2021-11-25 04:07] LABS: QNTFERON TB Mitogen Value > 10.00 IU/mL (.); QNTFERON TB Nil Value 0.09 IU/mL (.); QNTFERON TB1+ Ag Value 0.18 IU/mL (.); QNTFERON TB2+ Ag Value 0.12 IU/mL (.)
[2021-11-26 13:40] LABS: CCP IgG Antibodies 8 units (0-19); QNTIFERON TB Positive Criteria Negative (Negative)
== END 2021-11-21 23:59 | disposition home or self-care (01) ==
LOC: MTLAB 14:13
PROVIDERS: PCP Physician Assistant; Referring Provider Internal Medicine Rheumatology; Visit Provider Internal Medicine Rheumatology
DX: M06.4 Inflammatory polyarthropathy (principal); M79.7 Fibromyalgia; K58.1 Irritable bowel syndrome with constipation; F41.9 Anxiety disorder, unspecified; G25.81 Restless legs syndrome; M21.41 Flat foot [pes planus] (acquired), right foot; F32.A Depression, unspecified; Z79.899 Other long term (current) drug therapy
CPT/HCPCS: 36415; 80053; 85025; 85652; 86038; 86140; 86200; 86431; 86480; 86706; 86803; 87340

== ENCOUNTER 2021-12-12 11:38 | Outpatient (CLI) | payer OTHER, SELFPAY ==
[2021-12-12 15:13] LABS: Internal QC Validated? YES +Cl - CLEAR BKGD; Pregnancy, Urine Negative Negative
== END 2021-12-12 23:59 | disposition home or self-care (01) ==
LOC: MTLAB 11:39
PROVIDERS: PCP Physician Assistant; Referring Provider Internal Medicine Rheumatology; Visit Provider Internal Medicine Rheumatology
DX: M06.4 Inflammatory polyarthropathy (principal); M79.7 Fibromyalgia; K58.1 Irritable bowel syndrome with constipation; F41.9 Anxiety disorder, unspecified; G25.81 Restless legs syndrome; M21.41 Flat foot [pes planus] (acquired), right foot; Z79.899 Other long term (current) drug therapy
CPT/HCPCS: 81025

== ENCOUNTER → 2022-04-22 | Outpatient (CLI) | payer OTHER, SELFPAY | END | disposition home or self-care (01) | LOC: LABSPEC 04-23 08:22 | PROVIDERS: PCP Physician Assistant; Visit Provider Obstetrics & Gynecology | DX: N89.8 Other specified noninflammatory disorders of vagina (principal) | CPT/HCPCS: 87070; 87077; 87186; 87205 ==

== ENCOUNTER 2022-05-13 13:10 | Emergency (ER) | payer OTHER, SELFPAY ==
[2022-05-13 13:12] VITALS: BP 137/94; PULSE 95; RESP 14; TEMP 36.2; O2SAT 98; BMI 31.9
[2022-05-13 13:51] LABS: Bacteria 0 SEEN /hpf (None Seen); Color, Urine Yellow (Yellow); Glucose, Dipstick Normal (Normal); Ketone-Dipstick 50 mg/dl (Negative); Leukocyte Esterase-Dipstick 100 /ul (Negative); Mucous, Urine 0 SEEN /hpf (<or=2+); Nitrite-Dipstick Negative (Negative); Occult Blood-Urine Negative /ul (Negative); Protein-Dipstick 15 mg/dl (Negative); Red Blood Cells-Urine 0 SEEN /hpf (0-5); Specific Gravity, Urine 1.015 (1.002-1.030); Urine Bilirubin Dipstick Negative (Negative); Urine Clarity Sl. Cloudy (Clear); Urine Urobilinogen 1 mg/dl (Normal)
[2022-05-13 13:58] LABS: Squamous Epithelial Cells - UA 5-10 SEEN /hpf (5-10); White Blood Cells 5-10 SEEN /hpf (0-5)
--- NOTE | 2022-05-13 13:58 | EX.ED.DYSGE1 ---
HPI History of Present Illness Chief Complaint: Anxiety Narrative Narrative: Patient presents with anxiety, this is been ongoing for the past few weeks but slowly getting worse, she tells me it is at the point where she is not eating sleeping or performing a lot of her ADLs. She has no suicidal ideations, a lot of her anxiety stems from loss of family members job and family situations. She is on an SSRI but no other medications except for the occasional Ativan. [facility] Medical History Alcohol use Anxiety Contraceptive management Depression Endometriosis History of IBS History of ovarian cyst Physical exam, pre-employment Rheumatoid arthritis Smoker Wears contact lenses Wears glasses Home Medications etonogestrel 68 mg subdermal implant (Nexplanon) 1 implant subdermal ONCE 12/01/21 [History Last Taken Unknown] clindamycin HCl 150 mg capsule 150 mg PO TID 04/22/22 [History Last Taken Unknown] fluoxetine 20 mg capsule (Prozac) 20 mg PO DAILY 04/22/22 [History Last Taken Unknown] folic acid 1 mg tablet 1 mg PO DAILY 04/22/22 [History Last Taken Unknown] hydroxychloroquine 200 mg tablet (Plaquenil) 200 mg PO DAILY 04/22/22 [History Last Taken Unknown] methotrexate sodium 2.5 mg tablet 2.5 mg PO QWEEK 04/22/22 [History Last Taken Unknown] spironolactone 50 mg tablet 50 mg PO DAILY #30 tabs 04/22/22 [Rx Last Taken Unknown] tizanidine 4 mg capsule (Zanaflex) 4 mg PO QHS PRN 04/22/22 [History Last Taken Unknown] Allergy/AdvReac Type Severity Reaction Status Date / Time amoxicillin Allergy Hives Verified 05/13/22 13:12 duloxetine [From Cymbalta] AdvReac Other Verified 05/13/22 13:12 hydrocodone [From Vicodin] AdvReac Other Verified 05/13/22 13:12 promethazine [From Phenergan] AdvReac Other Verified 05/13/22 13:12 Family History Mother Hypertension Father Hypertension Grandmother Breast cancer Surgical History H/O laparoscopy History of cholecystectomy S/P appendectomy S/P bilateral foot surgery Social History Smoking Status: Current every day smoker tobacco type: cigarettes alcohol intake: current substance use type: does not use caffeine: Yes what type of physical activity do you participate in: none seatbelt use: always do you feel safe at home: Yes additional social history: single 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 No suicidal ideation Hematologic: No easy bleeding or easy bruising EXAM Physical Exam Narrative Exam Narrative: Physical exam General: Well nourished, Well developed, No Acute Distress, she appears slightly anxious Head: Normocephalic, Atraumatic Eyes: Conjunctiva not pale ENT: Moist mucous membranes Neck: Supple, Nontender, No lymphadenopathy Cardiovascular: Regular rate, Regular rhythm Respiratory: No distress, CTA bilaterally Abdomen: Soft, Nontender, Nondistended Back: Nontender, Normal Inspection. Negative for: CVA tenderness Extremities: Nontender, No edema Skin: Normal color, No rash Neurological: Alert, Normal Strength, Normal Sensation Psychological: Anxious, sometimes tearful no suicidal ideation Const Vital Signs: 05/13/22 13:12 Temperature 97.1 F L Temperature Source Temporal Pulse Rate 95 Respiratory Rate 14 Blood Pressure 137/94 H Blood Pressure Mean 108 Pulse Ox 98 Oxygen Delivery Method Room Air MDM MDM MDM Narrative Medical decision making narrative: Patient will be medically cleared and I will call crisis for evaluation, she may need inpatient treatment due to the fact that she is having difficulty with her ADLs due to her severe anxiety. Lab Data Labs: Laboratory Results - last 24 hr 05/13/22 05/13/22 13:40 13:40 Urine Color Yellow Urine Clarity Sl. Cloudy Urine pH 6.0 Ur Specific [place] 1.015 Urine Protein 15 H Urine Glucose (UA) Normal Urine Ketones 50 H Urine Occult Blood Negative Urine Nitrite Negative Urine Bilirubin Negative Urine Urobilinogen 1 H Ur Leukocyte Esterase 100 H Ur Drug Screen Comment Discharge Plan Triage Chief Complaint: Anxiety ED Provider: Marco Rodarte Dx/Rx/DC Orders Clinical Impression: Anxiety, Depression Prescriptions: No Action Nexplanon 68 mg implant 1 implant subdermal ONCE Rx Instructions: as a single dose hydroxychloroquine [Plaquenil] 200 mg tablet 200 mg PO DAILY fluoxetine [Prozac] 20 mg capsule 20 mg PO DAILY folic acid 1 mg tablet 1 mg PO DAILY methotrexate sodium 2.5 mg tablet 2.5 mg PO QWEEK tizanidine [Zanaflex] 4 mg capsule 4 mg PO QHS PRN clindamycin HCl 150 mg capsule 150 mg PO TID spironolactone 50 mg tablet 50 mg PO DAILY Qty: 30 12RF Primary Care Provider: Mary Parra Referrals: Mary Parra PA [Primary Care Provider] -
[2022-05-13 13:59] LABS: Internal QC Validated? YES +Cl - CLEAR BKGD; Pregnancy, Urine Negative Negative
[2022-05-13 14:07] LABS: Hematocrit 42.8 % (37-47); Hemoglobin 14.9 g/dL (12.0-15.0); Mean Corp Hgb Conc 34.8 g/dL (32-36); Mean Platelet Vol. 10.9 fl (6.2-12.0); Platelet Count 277 K/mm3 (150-450); RBC Distribution Width CV 12.3 % (11.6-14.6); RBC Distribution Width SD 41.8 fl (35.1-43.9); Red Blood Count 4.65 M/mm3 (4.2-5.4); White Blood Count 9.5 K/mm3 (4.4-11.0)
[2022-05-13 14:09] LABS: Amphetamine Urine VISTA NEGATIVE (<1000 ng/mL); Barbiturate Urine VISTA NEGATIVE (< 200 ng/mL); Benzodiazepine Urine VISTA NEGATIVE (< 200 ng/mL); Cocaine Urine VISTA NEGATIVE (< 300 ng/mL); Ecstacy Urine VISTA NEGATIVE (< 500 ng/mL); Methadone Urine VISTA NEGATIVE (< 300 ng/mL); PCP Urine VISTA NEGATIVE (< 25 ng/mL); THC Urine VISTA NEGATIVE (< 50 ng/mL); Vista UDS pH Range 6
[2022-05-13 14:11] VITALS: BP 135/78; PULSE 78; RESP 14; O2SAT 98
[2022-05-13 14:23] LABS: ALB/GLOB Ratio 1.2 RATIO (0.9-2.4); AST(SGOT) 20 U/L (15-37); Alanine Aminotransfer ALT/SGPT 36 U/L (13-56); Alkaline Phosphatase 105 U/L (45-117); Anion Gap 10 (5-15); BUN 5 mg/dL (7-18); BUN/Creat Ratio 5.2 RATIO (10-20); Calcium,Total 9.8 mg/dL (8.5-10.1); Chloride 106 mmol/L (98-107); Creatinine, Serum 0.96 mg/dL (0.55-1.02); EST Glomerular Filtration Rate 70 mL/min (>60); Est Glom Filt Rate - Afr Amer 85 mL/min (>60); Estimated Creatinine Clearance 82.51 ml/min; Globulin 3.3 g/dL (2.2-4.2); Glucose 88 mg/dL (74-106); Potassium 3.8 mmol/L (3.5-5.1); Protein, Total 7.3 g/dL (6.4-8.2); Sodium Level 140 mmol/L (136-145)
[2022-05-13 14:26] LABS: Alcohol, Blood (Medical)-Serum < 3.0 mg/dL
[2022-05-13] MEDS: LORazepam 0.5 MG Tablet PO (15:21)
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
--- NOTE | 2022-05-13 17:42 | NURSING ---
OLIVIA OUR [employer] WASTE TECHNICIAN IS WORKING ON PLACEMENT FOR THIS PT
--- NOTE | 2022-05-13 18:01 | ED.RN ---
PER OLIVIA PRESIDENT ERGONOMIC CONSULTING. PT HAS BEEN REFERRED TO [facility]
--- NOTE | 2022-05-13 18:31 | CM.ED ---
LILY spoke to Fabienne at [facility]. They have beds. LILY sent referral fax to [facility]. Lizet SERVIN
--- NOTE | 2022-05-13 18:39 | CM.ED ---
SW clarified with patient about her previous night at [facility]. She was seen by a provider but the provider did not feel that patient met psych criteria. Lizet SERVIN
[2022-05-13 18:40] VITALS: BP 142/94; PULSE 87; TEMP 36.1; O2SAT 100
--- NOTE | 2022-05-13 20:32 | CM.ED ---
Patient accepted at [facility] with accepting MD Jensen. LILY updated patient. Patient signed voluntary. Voluntary was faxed back to [facility]. LILY spoke to medical science liaison who said that Pam will call this mortgage or loan underwriter with room assignment. Lizet SERVIN
--- NOTE | 2022-05-13 20:54 | CM.ED ---
Pam from [facility]. Patient had been accepted. She provided room assigned and report phone number. She requested EMS be called and then report called to staff as then an ETA will be given. LILY updated admission discharge rn. Plan: [facility] (voluntary put in the packet to go to [facility] and also faxed to [facility] Lizet SERVIN
[2022-05-13 21:05] VITALS: BP 126/74; PULSE 84; RESP 16; O2SAT 100
[2022-05-13] MEDS: DiphenhydrAMINE 25 MG Capsule PO (21:58)
[2022-05-13 22:25] VITALS: BP 126/74; PULSE 84; RESP 16; TEMP 36.2; O2SAT 100
[2022-05-13 23:47] VITALS: RESP 16; O2SAT 99
== END 2022-05-14 00:54 ==
PROVIDERS: Emergency Provider Emergency Medicine; PCP Physician Assistant; Visit Provider Emergency Medicine
DX: F41.9 Anxiety disorder, unspecified (principal); M06.9 Rheumatoid arthritis, unspecified; F32.A Depression, unspecified; F17.210 Nicotine dependence, cigarettes, uncomplicated; Z79.899 Other long term (current) drug therapy
CPT/HCPCS: 80053; 80307; 81001; 81025; 82077; 85027; 87811; 99284

== ENCOUNTER → 2022-10-06 | Outpatient (CLI) | payer OTHER, SELFPAY ==
[2022-10-09 06:07] LABS: Chlamydia By Nucleic Acid AMP Negative (Negative)
[2022-10-09 15:21] LABS: HPV APTIMA, High Risk Negative (Negative)
[2022-10-09 16:17] LABS: Gonococcus By Nucleic Acid AMP Negative (Negative)
== END | disposition home or self-care (01) ==
LOC: LABSPEC 15:00
PROVIDERS: PCP Physician Assistant; Referring Provider Obstetrics & Gynecology; Visit Provider Obstetrics & Gynecology
DX: Z12.4 Encounter for screening for malignant neoplasm of cervix (principal); Z11.3 Encounter for screening for infections with a predominantly sexual mode of transmission
CPT/HCPCS: 87491; 87591; 87624; 88175; G0145

== ENCOUNTER → 2022-10-14 | Outpatient (CLI) | payer OTHER, SELFPAY ==
--- NOTE | 2022-10-14 12:47 | US_ITS ---
STUDY: ULTRASOUND OF THE FEMALE PELVIS - COMPLETE REASON FOR EXAM: Female, 36 years old. PELVIC MARYCRUZ LMP: No recent LMP. TECHNIQUE: Transabdominal and Transvaginal TECHNICAL QUALITY: Adequate. COMPARISON: Comparison is made with prior study dated 09/10/2021. FINDINGS: The uterus is anteverted and is in a midline position. The uterus measures 9.4 cm x 5 cm x 4.5 cm. There is a Nabothian cyst of the cervix. The endometrium measures 8.9 mm in thickness, and is hyperechoic. There is no demonstrated endometrial mass. There is a 2.5 cm x 2.77 x 1.6 cm fundal fibroid. I.U.D. - The patient does not have an I.U.D. The right ovary is visualized. The right ovary measures 2.1 cm x 1.8 cm x 1.2 cm. There is no right ovarian cyst or ovarian mass. There is no visualized right adnexal mass or complex lesion. There is normal arterial and normal venous vascularity. The left ovary is visualized. The left ovary measures 4.6 cm x 2.4 cm x 2.5 cm. There is a 2.8 cm x 2 cm x 1.7 cm simple cyst in the left ovary. There is no visualized left adnexal mass or complex lesion. There is normal arterial and normal venous vascularity. Minimal amount of free fluid is seen in the right adnexa. The pre void volume of the bladder was 461 ml. US/Pelvic (Non ) IMPRESSION: 2.8 cm x 2 cm x 1.7 cm simple cyst in the right ovary. Minimal amount of free fluid is seen in the right adnexa. 2.5 cm x 2.7 cm x 1.6 cm uterine fibroid Electronically Signed: Arturo Sargent MD at 15:09 EST ,
== END | disposition home or self-care (01) ==
LOC: OPUS 12:44 → US 12:45
PROVIDERS: PCP Physician Assistant; Referring Provider Obstetrics & Gynecology; Visit Provider Obstetrics & Gynecology
DX: R10.2 Pelvic and perineal pain (principal); N80.9 Endometriosis, unspecified
CPT/HCPCS: 76830; 76856; 93976

== ENCOUNTER → 2022-11-10 | Outpatient (CLI) | payer OTHER, SELFPAY ==
--- NOTE | 2022-11-10 14:15 | EMB_PTH ---
PATIENT: ZACH POLANCO LOC: [facility] U#:[id number] AGE/SX: 36/F ROOM: RE11/10/[address]: Dr. Kemi Haynes DO : 1985 BED: DIS: 11/10/2022 SPEC #: [id number] RECD: 11/10/22 17:32 STATUS: LOVE LACHELLE #: [id number] APPLE: 11/10/22 14:[address]: Kemi Haynes DEPT: SURGICAL PATHOLOGY RECD BY: Mikayla Dominguez ENTERED: 11/11/22 09:57 SP TYPE: ENDOM BX/C ED DR: CARON Vidal Tissues: Endometrium, NOS Procedures: Surgery Specimen Level IV HEADER OPERATION: Endometrial biopsy PRE-OP DIAGNOSIS: Abnormal uterine bleeding TISSUE SUBMITTED: Endometrial lining MICROSCOPIC DIAGNOSIS Endometrial biopsy: Scant strips of benign endometrial epithelium, insufficient for further evaluation. Fragments of benign endocervical epithelium and mucous. See comment. SJ:parker 11/13/2022 COMMENT The specimen predominantly consists of mucoid tissue. Please make reference to previous specimen ([id number]) endometrium, curettings with diagnosis of ?proliferative endometrium with focal glandular breakdown and mild chronic endometritis.? MICROSCOPIC DESCRIPTION Slides are reviewed. GROSS DESCRIPTION Received is one container labeled with the patient's name and not further designated. The specimen consists of multiple fragments of jean hemorrhagic mucoid tissue that in aggregate measure 1.5 x 1.5 x 0.2 cm. The specimen is totally submitted in one cassette. / LUIS FERNANDO:parker 11/11/2022 TC: Cannot code CPT: 24477
== END | disposition home or self-care (01) ==
PROVIDERS: PCP Physician Assistant; Visit Provider Obstetrics & Gynecology
DX: N93.9 Abnormal uterine and vaginal bleeding, unspecified (principal)
CPT/HCPCS: 88305

== ENCOUNTER 2023-03-23 05:25 | Day surgery (SDC) | payer OTHER, SELFPAY ==
[2023-03-10 15:46] LABS: Hematocrit 43.5 % (37-47); Hemoglobin 14.2 g/dL (12.0-15.0); Mean Corp Hgb Conc 32.6 g/dL (32-36); Mean Corpuscular Hgb 31.9 pg (27.0-32.0); Mean Corpuscular Volume 97.8 fL (81-99); Mean Platelet Vol. 10.3 fl (6.2-12.0); Platelet Count 241 K/mm3 (150-450); RBC Distribution Width CV 12.3 % (11.6-14.6); RBC Distribution Width SD 44.2 fl (35.1-43.9); Red Blood Count 4.45 M/mm3 (4.2-5.4)
[2023-03-10 16:03] LABS: Magnesium 2.2 mg/dL (1.6-2.6)
[2023-03-23] VITALS (13 sets, daily range): BP systolic 113–153; BP diastolic 53–87; PULSE 76–94; RESP 16–18; TEMP 36.6–36.7; O2SAT 97–100; BMI 36.1
--- NOTE | 2023-03-23 | HYST_PTH ---
PATIENT: ZACH POLANCO LOC: [facility] U#:[id number] AGE/SX: 37/F ROOM: RE03/23/[address]: Dr. Kemi Haynes DO : 1985 BED: DIS: 03/23/2023 SPEC #: [id number] RECD: 03/23/23 13:11 STATUS: LOVE LAROSE #: [id number] APPLE: 03/23/23 00:[address]: Kemi Haynes DEPT: SURGICAL PATHOLOGY RECD BY: Ruslan Rogers ENTERED: 03/23/23 13:11 SP TYPE: HYSTERECT OTHR DR: CARON Vidal Tissues: Uterus, NOS Procedures: Surgery Specimen Level V HEADER OPERATION: ERAS, total robotic hysterectomy, salpingectomy, cystoscopy PRE-OP DIAGNOSIS: Abnormal uterine bleeding, endometriosis TISSUE SUBMITTED: Uterus, cervix, bilateral fallopian tubes MICROSCOPIC DIAGNOSIS Uterus, cervix, bilateral fallopian tubes, hysterectomy and bilateral salpingectomy: Cervix - chronic inflammation and squamous metaplasia. Endometrium - inactive endometrium. Myometrium - diffuse adenomyosis involving posterior uterine wall. Bilateral fallopian tubes - no pathologic diagnosis. Left paratubal cysts. SJ:parker 03/24/2023 MICROSCOPIC DESCRIPTION Slides are reviewed. GROSS DESCRIPTION Received in fixative is one container labeled with the patient's name and designated uterus, cervix, bilateral fallopian tubes. The specimen consists of a hysterectomy specimen consisting of uterus with cervix and attached bilateral fallopian tubes. The uterus with cervix weighs 94 gm and measures 8.5 x 6.0 x 5.0 cm. The serosal surface is jean, glistening and unremarkable. The ectocervical mucosa is unremarkable. The external os is covered with hemorrhagic mucoid material and is circular in contour. The endocervical canal measures 3.0 cm in length and the endocervical mucosa is jean, glistening and unremarkable. The triangular endometrial cavity measures 4.0 cm in length and up to 2.5 cm in width. The endometrium is jean, glistening without any mass lesion and measures 0.1 cm in thickness. Sections of the uterine wall do not reveal any obvious mass lesion and anterior uterine wall measures up to 2.0 cm in thickness and posterior uterine wall measures up to 3.5 cm in thickness. Sections of the uterine wall reveal focal cyst filled with chocolate brown fluid suspicious for adenomyosis. The right fallopian tube measures 7.0 cm in length and 0.5 cm in diameter. The fimbrial end is identified. Sections reveal unremarkable cut surfaces. The left fallopian tube is similar appearance to right and measures 7.0 cm in length and 0.5 cm in diameter. Two paratubal cysts are identified measuring 0.3 to 0.5 cm in greatest dimension and they are filled with clear fluid. Bilingual Executive Assistant sections are submitted in ten cassettes as follows: 1 - anterior cervix, 2 - posterior cervix, 3 & 4 - anterior uterine wall, 5-8 - posterior uterine wall, 9??right fallopian tube, 10 - left fallopian tube and paratubal cyst. / SJ:parker 03/23/2023 TC: CPT: 80916
[2023-03-23 06:14] LABS: Internal QC Validated? YES +Cl - CLEAR BKGD; Pregnancy, Urine Negative Negative
[2023-03-23] MEDS: Magnesium 1 GM over 15 mins IV (06:29)
[2023-03-23] MEDS: dexAMETHasone 4 MG/ML Vial 8 MG IV (06:30)
[2023-03-23] MEDS: Phenazopyridine 95 MG Tablet 190 MG PO (06:31)
[2023-03-23] MEDS: Acetaminophen 500 MG Tablet 1000 MG PO (06:32)
[2023-03-23] MEDS: Gabapentin 600 MG Tablet PO (06:33)
[2023-03-23] MEDS: Celecoxib 200 MG Capsule 400 MG PO (06:33)
[2023-03-23] MEDS: Lactated Ringers 1,000 ML 40 ML IV (06:34)
[2023-03-23 06:36] LABS: Bedside Glucose 108 mg/dL (74-106)
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
--- NOTE | 2023-03-23 07:25 | DCINST_ITS ---
Discharge Instructions Diet Discharge Diet: No restrictions Activity May resume sexual activity in: 6 weeks Weight Bearing Status: Full weight bearing Dressing / Incision Call your doctor if your incision/area has: Continuous Slow Oozing, Sudden Increased Bleeding, Increased Pain/ Swelling, Increased Redness and Foul Smelling Discharge Call your doctor if you observe: Fever of 101 or Higher, Using more than 1 pad per hour, Shortness of breath, Chest pain and Uncontrolled pain Suture Line Care: Avoid Pulling/Pushing and Avoid Pinching/Bending Remove Dressing in: 1 week (if present) Cleanse incision/area with: Soap & Water and Keep Dressing Clean & Dry Follow Up Care Please Follow Up With: Kemi Haynes DO When: Call to make an appointment with your doctor for a postop visit in 2 and 6 weeks Test Results: Test results from this visit will be discussed in further detail at your follow- up appointment, if applicable. Discharge Plan Admission Primary Reason for Your Visit: hysterectomy Attending Provider: Kemi Haynes Primary Care Provider: Mary Parra Discharge Orders/Prescriptions Prescriptions: New ibuprofen 800 mg tablet 800 mg PO Q8H PRN (Reason: pain) Qty: 30 0RF ondansetron HCl 4 mg tablet 4 mg PO Q6H PRN (Reason: nausea and vomiting) Qty: 30 0RF oxycodone-acetaminophen [Percocet] 5-325 mg tablet 1 tab PO Q4H PRN (Reason: pain) 7 Days Qty: 30 0RF Rx Instructions: 1-2 tabs q 4 hrs as needed for pain Continued Nexplanon 68 mg implant 1 implant subdermal ONCE Rx Instructions: as a single dose hydroxychloroquine [Plaquenil] 200 mg tablet 200 mg PO BID folic acid 1 mg tablet 2 mg PO QHS methotrexate sodium 2.5 mg tablet 15 mg PO QWEEK tizanidine [Zanaflex] 4 mg capsule 4 mg PO QHS PRN (Reason: Muscle Pain) fluoxetine [Prozac] 20 mg capsule 80 mg PO DAILY ascorbic acid (vitamin C) [Vitamin C] 500 mg Tablet 500 mg PO DAILY trazodone 100 mg tablet 125 mg PO QHS gabapentin 100 mg capsule 100 mg PO TID Label Comments: TAKE ONE CAPSULE BY MOUTH THREE TIMES DAILY spironolactone 50 mg tablet 25 mg PO DAILY Other Ambulatory Orders: ,Urine (Routine) Timeframe: [id number] Facility: [facility] - Location: Laboratory Ordered By: Dr. Kemi Haynes Referrals / Follow Up: Mary Parra, PA [Primary Care Provider] - Disposition Disposition (needs filled in before D/C Order can be placed): Home, Self Care
[2023-03-23] MEDS: Cefazolin 2 GM in 0.9% Normal Saline 100 ML IV (07:28)
[2023-03-23] MEDS: Lactated Ringers @ 70 MLS/HR 70 ML IV (09:15)
--- NOTE | 2023-03-23 09:15 | OP.PCM_ITS ---
Problems Associated Problem List Diagnoses (1) Abnormal uterine bleeding: (2) Endometriosis: (3) Endometritis: Report of Operation Date of Procedure: 03/23/23 Pre-Operative Diagnosis: menorrhagia, endometriosis Post-Operative Diagnosis: menorrhagia, endometriosis Surgery/Procedure Performed:: total robotic hysterectomy, bilateral salpingectomy, cystoscopy, removal of nexplanon Description of Surgical Findings:: mild amount of endometriosis in the cul-de-sac, 10 cmsize uterus, normal appearing ovaries and tubes. On exploration of the abdominal cavity the uterus, adnexa, bowel, and liver were found to be normal. Cystoscopy showed no evidence of leaking at approximately 250 cc of normal saline, positive ureteral orifices and jet flow are seen and no suture material was appreciated in the bladder. Surgeon: Kemi Haynes carton forming machine operator: Heidi Lassiter Type of Anesthesia: General Anesthesiologist: Raúl Alexander Specimen's removed: uterus, fallopian tubes, cervix, nexplanon device Drains: none Estimated Blood Loss (mL): 35cc Fluids Replaced: 1 liter Description of Procedure: Specimens removed: Uterus and cervix, [Bilateral tubes and ovaries] Reason for surgery: This is a 37-year-old G1, P1who presented to my office with history of painful periods and endometriosis. 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 The planned procedure is for a robotic hysterectomy the risks benefits and alternatives were discussed with the patient the patient had a clear understanding of the procedure and a consent form was signed. Procedure: The patient was placed in the dorsal low lithotomy position and prepped and draped in the normal sterile fashion both abdominally and in the perineum. Her legs were placed in stirrups a Hernandez catheter was inserted into the urethra without difficulty. A weighted speculum was placed in the vagina and a single- tooth tenaculum was used to grasp the anterior lip of the cervix. An advincula uterine manipulator was inserted through the cervix without complication. It was then tied into place at the 2 and 10:00 locations on the cervix. Gloves were changed and attention was turned towards the abdomen. Approximately 23 cm above the pubic symphysis in the midline, and after Marcaine injection, a cyst. Mm incision was made. An 8 mm trocar was inserted through the laparoscope, then inserted into the abdomen under direct visualization using the laparoscope. Good abdominal placement was noted and no complications were appreciated. An air seal device was utilized to create pneumoperitoneum. At 12 cm lateral to the midline on the left and right sides 8 mm accessory ports were placed. Next a left upper quadrant 8 mm compounding assistant port site was placed. The patient was placed in steep Trendelenburg position. The robot was docked. The hysterectomy was initiated first by taking down the round ligament on each side using the vessel sealer device. The fallopian tube on the right side was grasped with the ProGrasp and the underlying mesosalpinx was cauterized and cut to the level of the uterus using the vessel sealer device. The ovarian ligament was also cauterized and cut using the vessel sealer device. The same procedure was performed on the left side the broad ligament was then and taken down using the vessel sealer device on both sides. Next the bladder flap was taken down without complication. This was done using monopolar cautery to the level of the cervical vaginal junction. After the bladder flap was created, uterine vessels were then isolated and cauterized using the vessel sealer device and EndoShears. At this point the uterine vessels were taken down further starting from the ascending branch, dissecting along the edges of the cervix to the level of the cervical vaginal junction with hemostasis appreciated. The cervical vaginal junction was then using monopolar cautery in a circumferential pattern across the superior aspect of the cervix. The specimen was delivered through the vagina and sent to pathology. The remaining vaginal cuff was then closed using a V lock suture. This was performed in a running technique. Excellent hemostasis was obtained and good closure was noted. Irrigation was then performed. All operative sites were noted to be hemostatic. A cystoscopy was performed with a 70 degree cystoscope through the urethra into the bladder without complication. The bladder was instilled with approximately 250 cc of normal saline. Intraoperative images were made. Ureteral orifices and jets were identified. No suture material was appreciated in the bladder. The bladder was then drained and cystoscope was removed. The abdominal cavity was again examined using the laparoscope after the robot was undocked. All operative sites were noted to be hemostatic. The trochars were removed under direct visualization without complication and pneumoperitoneum was reduced. At this point the skin was then closed using 4-0 Monocryl subcuticular stitch and sealed with surgical glue. The left arm was then cleansed with Betadine and a stab incision was made over the site of the Nexplanon. The device was removed in the usual sterile fashion and sealed with a Steri-Strip. The patient tolerated the procedure well sponge lap and needle counts were correct x2 the patient was taken to the recovery room in stable condition. Procedures Urinary/Genital 52xxx-59xxx: Other Procedure See Report
[2023-03-23] MEDS: Bupivacaine 0.25% 30 ML Vial (09:27)
[2023-03-23 11:56] LABS: Bedside Glucose 122 mg/dL (74-106)
[2023-03-23] MEDS: Oxycodone/Apap 5/325 Tablet PO (12:40)
== END 2023-03-23 13:31 | disposition home or self-care (01) ==
LOC: SDC 05:26 → AC 05:26
PROVIDERS: Anesthesiology; PCP Physician Assistant; Referring Provider Obstetrics & Gynecology; Visit Provider Obstetrics & Gynecology
PROC: 0UT94ZZ Resection of Uterus, Percutaneous Endoscopic Approach (ICD-10-PCS; CPT 58571; principal; 2023-03-23 07:10)
DX: N87.9 Dysplasia of cervix uteri, unspecified (principal); N83.8 Other noninflammatory disorders of ovary, fallopian tube and broad ligament; N93.9 Abnormal uterine and vaginal bleeding, unspecified; N92.0 Excessive and frequent menstruation with regular cycle; F41.9 Anxiety disorder, unspecified; F32.A Depression, unspecified; Z79.899 Other long term (current) drug therapy; Z87.891 Personal history of nicotine dependence
CPT/HCPCS: 58571; S2900; 00840; 36415; 81025; 82962; 83735; 85027; 86850; 86900; 86901; 88307; J7120; J2405; J3475

== ENCOUNTER → 2023-05-22 | Outpatient (CLI) | payer OTHER, SELFPAY ==
--- NOTE | 2023-05-22 07:31 | MRI_ITS ---
EXAM: MR RIGHT LOWER EXTREMITY WITHOUT INTRAVENOUS CONTRAST, FOOT CLINICAL INDICATION: RT FOOT.PAIN BASE AT BASES OF LESSER METATARSALS TECHNIQUE: Multiplanar and multisequence MR images of the right foot without intravenous contrast. COMPARISON: None. FINDINGS: Flexor and extensor tendons are intact. MUSCLES: Unremarkable. No edema or myositis. FLUID: Small ankle joint effusion, partially imaged. Joint spaces are otherwise maintained. BONES/JOINTS: Hallux valgus. Metallic artifact due to prior internal fixation of the first metatarsal and first proximal phalanx. Marrow signal is otherwise normal. No fracture, bone contusion or osteonecrosis. OTHER SOFT TISSUES: Unremarkable. No soft tissue mass or cystic lesion. MRI/Lower Ext/No Jt/w/o IMPRESSION: Ankle effusion. Otherwise no acute findings. Electronically Signed: Jackie Marquez MD at 23:43 EDT Reading Location ID and State: [id number] / Tel , Service support ,
== END | disposition home or self-care (01) ==
LOC: MRI 07:25
PROVIDERS: PCP Physician Assistant; Referring Provider Podiatrist; Visit Provider Podiatrist
DX: M84.30XG Stress fracture, unspecified site, subsequent encounter for fracture with delayed healing (principal)
CPT/HCPCS: 73718

== ENCOUNTER → 2023-12-15 | Outpatient (CLI) | payer BC, SELFPAY ==
--- NOTE | 2023-12-15 07:24 | MRI_ITS ---
HISTORY: Pain TECHNIQUE: Multiplanar and multisequence MR images of the lumbar spine were obtained without intravenous contrast. 143 images. COMPARISON: XR 12/02/2023, MR 10/08/2021. FINDINGS: VERTEBRAE: Vertebral body heights maintained. Mild degenerative endplate changes, particularly at L5-S1. No other significant bone marrow signal abnormality. ALIGNMENT: No anterior or posterior subluxation. CONUS: Normal morphology and position of the conus medullaris at T12-L1. INTERVERTEBRAL DISCS: T12-L1: Minimal disc bulge without significant central canal stenosis or foraminal narrowing based on the sagittal images. L1-2, L2-3: No significant signal abnormality, posterior disc protrusion, central canal stenosis, or foraminal narrowing. L3-4: Minimal disc bulge and mild facet arthropathy resulting in moderate right foraminal narrowing, increased from prior. No significant central canal stenosis. L4-5: Minimal disc bulge and facet arthropathy resulting in mild-moderate bilateral foraminal narrowing, progressed from prior. No significant central canal stenosis. L5-S1: Increased size of posterior disc protrusion with a left paracentral extruded and inferiorly migrated component extending into the left lateral recess with left S1 and S2 nerve root impingement. Mild central canal stenosis and bilateral foraminal narrowing. SOFT TISSUES: Posterior subcutaneous edema. Incompletely imaged bilateral pelvic cysts. MRI/Spine Lumbar (Routine) IMPRESSION: Progression of degenerative disc disease at L5-S1 with a left paracentral disc extrusion resulting in left nerve root impingement, mild central canal stenosis, and mild bilateral foraminal narrowing. Progression of degenerative change at L3-4 and L4-5 with moderate right foraminal narrowing as above. Bilateral pelvic cysts, likely ovarian origin. Consider ultrasound correlation. Electronically Signed: Ginny Manzanares MD at 8:32 EDT ,
== END | disposition home or self-care (01) ==
PROVIDERS: PCP Physician Assistant; Referring Provider Orthopaedic Surgery; Visit Provider Orthopaedic Surgery
DX: M51.26 Other intervertebral disc displacement, lumbar region (principal); M51.27 Other intervertebral disc displacement, lumbosacral region
CPT/HCPCS: 72148

== ENCOUNTER 2024-01-25 05:23 | Inpatient (IN) | payer BC, SELFPAY ==
--- NOTE | 2024-01-12 08:04 | EKG12_ITS ---
Test Reason : PRE-OP Blood Pressure : / mmHG Vent. Rate : 076 BPM Atrial Rate : 076 BPM P-R Int : 134 ms QRS Dur : 098 ms QT Int : 398 ms P-R-T Axes : 037 048 046 degrees QTc Int : 447 ms Normal sinus rhythm Normal ECG Confirmed by SERA WILDER, CHARISSE ([id number]), industrial editor ELLYN ROMAN ([id number]) on 01/13/2024 9:32:00 AM Referred By: JUAN LUIS Confirmed By:CHARISSE ZAMORA MD
[2024-01-12 08:41] LABS: Absolute Neutrophil Count 4.3 X10^3/uL (2.0-7.7); Basophil# 0.04 X10^3/uL; Basophil% 0.6 % (0-1); Eosinophil# 0.14 X10^3/uL; Eosinophils% 2.1 % (0-5); Hematocrit 41.5 % (37-47); Hemoglobin 13.5 g/dL (12.0-15.0); Lymphocyte % 26.4 % (19-41); Mean Corp Hgb Conc 32.5 g/dL (32-36); Mean Corpuscular Hgb 31.3 pg (27.0-32.0); Mean Corpuscular Volume 96.3 fL (81-99); Monocyte# 0.48 X10^3/uL; NRBC Flagged by Analyzer 0 % (0-5); Neutrophil # 4.33 X10^3/uL (2.7-7.7); Neutrophil % 63.6 % (47-70); Platelet Count 262 K/mm3 (150-450); RBC Distribution Width CV 12.4 % (11.6-14.6); RBC Distribution Width SD 44.2 fl (35.1-43.9); Red Blood Count 4.31 M/mm3 (4.2-5.4); White Blood Count 6.8 K/mm3 (4.4-11.0)
[2024-01-12 09:07] LABS: Anion Gap 1 (5-15); BUN 8 mg/dL (7-18); BUN/Creat Ratio 8.7 RATIO (10-20); Calcium,Total 8.8 mg/dL (8.5-10.1); Chloride 107 mmol/L (98-107); Creatinine, Serum 0.92 mg/dL (0.55-1.02); EST Glomerular Filtration Rate 73 mL/min (>60); Est Glom Filt Rate - Afr Amer 88 mL/min (>60); Glucose 85 mg/dL (74-106); Magnesium 1.9 mg/dL (1.6-2.6); Sodium Level 139 mmol/L (136-145)
[2024-01-12 09:50] LABS: HIV - WCH Non-Reactive (Nonreactive); Hepatitis B Surface Antibody Reactive; Hepatitis C Antibody Non-Reactive (Nonreactive)
[2024-01-13 06:09] LABS: Hepatitis A AB, Total Negative (Negative)
--- NOTE | 2024-01-23 13:33 | HP.PCM_ITS ---
History and Physical [facility] [address] [place] [address] [address] [place] [address] OFFICE VISIT Date of Service: 12/02/23 MR#: [id number] Acct: [id number] Name: ZACH POALNCO Rep #: [id number] : 1985 Provider: Dr. Chris Diehl DO Age/Sex: 38/F [place] [facility] [place] Status: Signed Intake Vital Signs 05/05/2311:47 12/01/2413:26 Height 5 ft 8 in 5 ft 8 in Weight: 241 lb 4 oz BMI 36.6 Intake Visit Reasons: LUMBAR SPINE Accompanied by: Self Is patient in pain?: Yes Allergies amoxicillin Allergy (Verified 12/02/23 14:27) Hivesprochlorperazine [From Compazine] Allergy (Verified 12/02/23 14:27) Otherduloxetine [From Cymbalta] Adverse Reaction (Verified 12/02/23 14:27) Otherhydrocodone [From Vicodin] Adverse Reaction (Verified 12/02/23 14:27) Otherpromethazine [From Phenergan] Adverse Reaction (Verified 12/02/23 14:27) Other Medications folic acid 1 mg tablet 2 mg PO QHS 04/22/22 [History Confirmed 12/02/23] hydroxychloroquine 200 mg tablet (Plaquenil) 200 mg PO BID 04/22/22 [History Confirmed 12/02/23] methotrexate sodium 2.5 mg tablet 15 mg PO QWEEK 04/22/22 [History Confirmed 12/02/23] tizanidine 4 mg capsule (Zanaflex) 4 mg PO QHS PRN Muscle Pain 04/22/22 [History Confirmed 12/02/23] fluoxetine 20 mg capsule (Prozac) 80 mg PO DAILY 10/06/22 [History Confirmed 12/02/23] ascorbic acid (vitamin C) 500 mg tablet (Vitamin C) 500 mg PO DAILY 03/09/23 [History Confirmed 12/02/23] gabapentin 100 mg capsule 100 mg PO TID 03/09/23 [History Confirmed 12/02/23] trazodone 100 mg tablet 125 mg PO QHS 03/09/23 [History Confirmed 12/02/23] [facility] Medical History Alcohol use Anxiety Depression Endometriosis Fibromyalgia Former smoker History of IBS History of ovarian cyst Rheumatoid arthritis Wears contact lenses Wears glasses Surgical History H/O bilateral salpingectomy H/O laparoscopy History of cholecystectomy History of hysteroscopy S/P appendectomy S/P bilateral foot surgery Status post hysterectomy Family History Mother HypertensionFather HypertensionGrandmother Breast cancer Social History Smoking Status: Former smoker alcohol intake: current substance use type: does not use caffeine: Yes what type of physical activity do you participate in: none seatbelt use: always do you feel safe at home: Yes additional social history: single Works at [employer] LUMBAR SPINE Details: This documentation accurately reflects the service provided and the decisions made by me, Dr. Chris Diehl, DO 12/02/23 1421. Part of today?s visit was documented by Sylvia STEINER, acting as scribe. ZACH POLANCO is a 38 year old F here today for f/u on lumbar spine. patient was last seen on 12/01/21. She states that she has been seeing Dr Roche and has been getting injections but the give her short term relief. Denies radiating pain. Denies numbness, tingling or other associated symptoms. She states that Dr Roche had her on Nucynta for her pain. She states that her pain is getting worse. She rates her pain an 8/10 today. Zach returns after not having been seen in a couple of years. 6 weeks ago she began to have a big increase in her low back pain. The pain has been severe now for 6 weeks. When it is bad it is a 10/10 in severity when it is good it is a 6/10 in severity. She can barely get through the day. She does not have any lower extremity symptomatology. Either sitting for a while or standing are both bad. She denies any bowel or bladder dysfunction. She denies history of unexplained weight loss night fever sweats or chills. On examination she can stand on her toes and she can stand on her heels. She has perhaps more pain with extension but also with flexion. She has good motor strength of all major muscle groups of both lower extremities. She has 3+ patellar reflexes and 2+ Achilles reflexes bilaterally. She has no long tract signs. Clonus is absent and Babinski's are downgoing. Plain x-rays taken in my office demonstrate some degenerative changes though they seem to be rather mild. She does have decreased disc space apparently at L5-S1. She states that this is by far the worst back pain she has ever had. The back pain she had before when I saw her a couple of years ago was nothing compared to this pain. Because of the severity of the pain and the fact that over 6 weeks now it has not improved it is time to proceed with an MRI scan of the lumbar spine. I will see her after the MRI scan and make further recommendations. Coding Level of Care Code Off vis,est,level 3 Diagnoses Facet syndrome, lumbar M47.816 HNP (herniated nucleus pulposus), lumbar M51.26 Time Spent (min) 25 Assessment and Plan Assessment and Plan (1) Facet syndrome, lumbar: Status: Acute (2) HNP (herniated nucleus pulposus), lumbar:
[2024-01-25] VITALS (17 sets, daily range): BP systolic 96–146; BP diastolic 53–100; PULSE 67–96; RESP 12–20; TEMP 36.2–36.8; O2SAT 67–100; BMI 36.3
[2024-01-25] MEDS: Lactated Ringers 1,000 ML 15 ML IV (06:03)
[2024-01-25] MEDS: Magnesium 2 GM for ERAS IV (06:03)
[2024-01-25] MEDS: Acetaminophen 500 MG Tablet 1000 MG PO ×2 (06:04→21:11)
[2024-01-25 06:29] LABS: Bedside Glucose 69 mg/dL (74-106)
--- NOTE | 2024-01-25 06:30 | RAD_ITS ---
STUDY: X-RAY - LUMBAR SPINE REASON FOR EXAM: Female, 38 years old. 360 FUSION L5-S1 WITH LT LAMINECTOMY TECHNIQUE: Single lateral view(s) of the lumbar spine were obtained. COMPARISON: None FINDINGS: The localization instrument is seen anterior to the L5-S1 disc space level. RAD/Spine 1 View Any Level IMPRESSION: The localization instrument is seen anterior to the L5-S1 disc space level. Electronically Signed: Arturo Sargent MD at 8:27 EDT ,
--- NOTE | 2024-01-25 07:30 | DISC_PTH ---
PATIENT: ZACH POLANCO LOC: MS3 U#:[id number] AGE/SX: 38/F ROOM: TX305 RE01/25/[address]: Dr. Chris Diehl DO : 1985 BED: 1 DIS: 01/28/2024 SPEC #: [id number] RECD: 01/25/24 16:02 STATUS: LOVE REJelani #: [id number] APPLE: 01/25/24 07:[address]: Chris Diehl DEPT: SURGICAL PATHOLOGY RECD BY: Mikayla Dominguez ENTERED: 01/26/24 09:50 SP TYPE: DISC OTHR DR: MD Mary Emery PA Tissues: Intervertebral disc, NOS Procedures: Surgery Specimen Level III HEADER OPERATION: ERAS 360 lumbar fusion L5-S1 with laminectomy PRE-OP DIAGNOSIS: Facet syndrome, lumbar, herniated nucleus pulposis, lumbar TISSUE SUBMITTED: Disc L5-S1 MICROSCOPIC DIAGNOSIS Intravertebral disc, L5-S1, discectomy: Fragments of intervertebral disc with degenerative change. / 01/27/24 MICROSCOPIC DESCRIPTION Slides are reviewed. GROSS DESCRIPTION Received in fixative is one container labeled with the patient's name and designated Disc L5-S1. The specimen consists of multiple irregular fragments of indurated white-jean soft tissue measuring in aggregate 10.0 x 7.0 x 2.0cm. Repeat Photocomposing Machine Operator portions are submitted in one cassette. / 01/26/24 TC:5 CPT:63214
[2024-01-25] MEDS: Cefazolin 2 GM in 0.9% Normal Saline (100mL Bag) 100 ML IV ×2 (08:10→12:05)
[2024-01-25] MEDS: Heparin 10,000 UNITS/10 ML Vial 10000 UNITS (10:00)
--- NOTE | 2024-01-25 11:43 | OP.PCM_ITS ---
Report of Operation Description of Surgical Findings:: Preoperative diagnosis: Herniated disc L5-S1 on the left with intractable low back pain and leg pain Postoperative diagnosis: Same Procedures: #1 anterior lumbar interbody fusion L5-S1 CPT code 51511 #2 anterior plate fixation L5-S1 CPT code 24839/59 notes this this CPT code is different from the code for the cage. The insurance carriers would like us to put these as 1 procedure however they are not. The cage and the internal fixation are 2 different issues they do not even touch. So it is not part of the pec cage and the cage is not part of the plate. These are 2 different procedures and they are not dependent 1 on the other. Thus the 2 different CPT codes. #3 insertion of anterior cage CPT code 00192 #4 bone marrow aspirate from right iliac crest CPT code 22842 #5 allograft bone for cage CPT code [address] Diehl and Dr. Lovelace Anesthesia: General endotracheal by Nya pet care associate EBL: Less than 100 cc Drains:
--- NOTE | 2024-01-25 11:43 | PCM.OPRPT ---
Report of Operation Description of Surgical Findings:: Preoperative diagnosis: Herniated disc L5-S1 on the left with intractable low back pain and leg pain Postoperative diagnosis: Same Procedures: #1 anterior lumbar interbody fusion L5-S1 CPT code 77026 #2 anterior plate fixation L5-S1 CPT code 14207/59 notes this this CPT code is different from the code for the cage. The insurance carriers would like us to put these as 1 procedure however they are not. The cage and the internal fixation are 2 different issues they do not even touch. So it is not part of the pec cage and the cage is not part of the plate. These are 2 different procedures and they are not dependent 1 on the other. Thus the 2 different CPT codes. #3 insertion of anterior cage CPT code 58961 #4 bone marrow aspirate from right iliac crest CPT code 15905 #5 allograft bone for cage CPT code [address] Diehl and Dr. Lovelace Anesthesia: General endotracheal by Nya automotive sales associate EBL: Less than 100 cc Drains: Wound VAC Complications: None Procedure: Patient was taken to the OR where she was placed in supine position on the operating table. She was placed under general endotracheal anesthesia. A Hernandez catheter was inserted. Neuromonitoring placed his leads on the patient. The abdomen was prepped and draped in standard fashion. Through a small puncture incision we placed a Jamshidi needle in the right iliac crest and 0 40 cc of bone marrow aspirate. This was handed off to the lens coating technician in the room who was able to separate the stem cells and concentrated them about 10 times and give them back to us in about 5 or 6 cc of fluid. The surgical approach is then described in Dr. Lovelace's operative summary. Once he had good exposure and the L5-S1 level identified with a needle marker I then removed the anterior annulus with a 10 blade and used a pituitary rongeurs to remove more nucleus from within the disc space. Following this I used a ring curette and a bowl curette to remove remaining cartilage off both endplates all the way back to near the posterior longitudinal ligament. The hole in the posterior ligament and annulus was apparent. I did use a nerve hook to try to bring some of it in however I do not know if I got any of it or not. We will still have to do the laminectomy posteriorly. Once this was done I used a bur to bur the sides of the bottom of L5. This was simply to flatten it out some. We took our measurements for a cage. We decided on a 12 mm high 35 x 25 cage with 8 degrees of lordosis. The broach was then used to broach the disc space and good bleeding endplate. I then filled the 2 halves of the cage with spongy allograft bone. This bone was then soaked in the patient's own stem cells. I then tamped the cage into place. It was countersunk a couple of millimeters. We then used a 27 mm L5-S1 anterior plate. I had that in place while I Dr. Lovelace tamped the first of 4 holes 2 into L5 and 2 into S1. This was followed by insertion of 30 mm screws into 5 and 25 mm screws into S1. Amniotic membrane was then placed over the plate to prevent adhesions of the vessels surrounding it from adhering to the plate. The closure is then described in Dr. Lovelace's operative summary. This is the end of operative summary on Elda Emanuel. This is Dr. Diehl dictating.
--- NOTE | 2024-01-25 12:00 | RAD_ITS ---
INDICATION: 360 FUSION EXAMINATION/TECHNIQUE: X-RAY - XR Spine Lumbar 1 View COMPARISON: No relevant prior comparison study available FINDINGS: On this single lateral image intraoperatively of the lumbar spine there is anterior fusion hardware with a disc spacer at L5-S1. Appropriate alignment. RAD/Spine 1 View Any Level IMPRESSION: Intraoperative guidance for anterior fusion at L5-S1. Electronically Signed: Humza Rosales MD at 7:00 EDT ,
[2024-01-25] MEDS: THROMBIN (RECOMBINANT) 20,000 UNIT VIAL 20000 UNIT TOPICAL (13:10)
--- NOTE | 2024-01-25 13:10 | RAD_ITS ---
STUDY: X-RAY - LUMBAR SPINE REASON FOR EXAM: Female, 38 years old. 360 FUSION TECHNIQUE: Single lateral view(s) of the lumbar spine were obtained. COMPARISON: None FINDINGS: The localization instrument is seen posterior to the L5-S1 disc space level. Status post anterior fusion and prosthetic disc placement. RAD/Spine 1 View Any Level IMPRESSION: The localization instrument is seen posterior to the L5-S1 disc space level. Electronically Signed: Arturo Sargent MD at 15:36 EDT ,
--- NOTE | 2024-01-25 13:26 | RAD_ITS ---
STUDY: X-RAY - LUMBAR SPINE REASON FOR EXAM: Female, 38 years old. 360 FUSION -- image #4 TECHNIQUE: Single lateral view(s) of the lumbar spine were obtained. COMPARISON: None FINDINGS: The patient is status post 360 degree fusion at the L5-S1 level with prosthetic disc placement. RAD/Spine 1 View Any Level IMPRESSION: Status post 3 and 60 degree fusion at the L5-S1 level with prosthetic disc placement Electronically Signed: Arturo Sargent MD at 15:04 EDT ,
--- NOTE | 2024-01-25 15:06 | PCM.OPRPT ---
Report of Operation Description of Surgical Findings:: Preoperative diagnosis: Herniated disc L5-S1 Postoperative diagnosis: Same Procedures: #1 posterior fusion L5-S1 CPT code 68450 #2 lumbar laminectomy L5-S1 CPT code 73053 #3 internal fixation L5-S1 CPT code 86722 #4 bone allograft and Sparc CPT code 78769 Surgeon: Dr. Diehl Flake Miller Helper: Ariel from surgery [employer] Anesthesia: General endotracheal by [facility] EBL: 120 cc on the back and 80 cc on the front. Left a total of 200 cc for both surgeries Drains: None Complications: None Procedure: After the anterior surgery was completed and Dr. Lovelace closed the abdomen the patient was then moved onto the prone position on the Brenden frame. After appropriate positioning with care to protect her bony prominences her breasts her facial features her ulnar nerves of both elbows and the brachial plexus on both sides the back was prepped and draped standard fashion. I made a longitudinal incision centered over L5-S1. Subcutaneous tissues were incised the length of the skin incision. Note that she had a lot of adipose tissue and her spine was very deep in her back. Once I found the lumbar fascia I opened it to the left of the spinous processes and elevated the paravertebral muscles off the lamina 5 and the top of the lamina of S1. An intraoperative x-ray was taken with a marker to confirm that we were at the proper level. Because of her large size I moved to the opposite side of the table to open the right side elevating the paravertebral muscles off the lamina of 5 and the lamina of S1. Super slide retractors were then put in place with 3 inch blades. Moved back to the left side again and started by laminectomy of the L5 lamina. I used curettes to release the ligamentum flavum off the underside of the lamina and the laminotomy was carried out with a 45 degree Kerrison rongeurs I then used a [place] to slide under the ligamentum flavum split it near its medial side with a 15 blade. I then released the ligamentum flavum off the top of S1 using curettes. 45 degree Kerrison rongeurs were then used to slowly remove the ligamentum flavum. Once this was done I then performed a laminotomy of the S1 vertebra starting at the top and making a good sized laminotomy larger than the one at L5. I also open the lateral recesses completely and removed all the ligamentum flavum. I also perform medial facetectomy of the L5-S1 facet. This gave us a lot of room lateralward I was not able to find a disc herniation that the MRI suggested however she had either an extremely's swollen nerve root or I removed the disc from the front. The nerve root was checked with a [place] into the foramen was found to be totally open by retracting the nerve root medial word and the dura medial word I was not able to find any disc which leads me to believe that part of what we saw on the MRI was indeed the swollen nerve and possibly again some of the disc was removed through the posterior hole in the in the annulus and posterior longitudinal ligament. Nonetheless the nerve was completely decompressed. I then used a bur to bur the lamina of L5 and the lamina of S1 on the right side. SPARQ was placed from the lamina of L5-S1 on the right side. We then applied the internal fixation device. It was locked in place between the spinous processes and the locking mechanisms activated. Intraoperative x-ray was taken that demonstrated excellent position of all the hardware and the cage. This is the end of operative summary on Elda Emanuel. This is Dr. Diehl dictating.
[2024-01-25] MEDS: Morphine 4 MG/ML Syringe IV ×3 (18:18→23:41)
--- NOTE | 2024-01-25 19:03 | PN.HOSP_ITS ---
Reason for Visit Reason for Visit: Diagnoses Encounter for other preprocedural examination (01/25/24) Subjective Subjective Patient notes still ongoing discomfort with recent pain regimen just given with more sharp shooting discomfort to the lumbar spine at the region of surgical intervention but no shooting pains down the legs or any numbness or tingling and ongoing ability to move them without any deficits. She notes she is been tolerating clears and Jell-O without issue. She is currently rating her discomfort 7-8 out of 10 in severity but does not appear severely uncomfortable. Patient denies fevers, chills, nausea, emesis, abdominal pain, chest pain or dyspnea. Objective Data Objective Data Vital Signs: Vital Signs Temp Pulse Resp BP Pulse Ox O2 Del Method O2 Flow Rate 98.0 F 74 20 H 139/100 H 94 Room Air 4 01/25/24 18:00 01/25/24 18:00 01/25/24 18:00 01/25/24 18:00 01/25/24 18:00 01/25/24 18:37 01/25/24 17:00 Oxygen Flow Rate (L/min) 4 Oxygen Delivery Method Room Air Weight: 239 lb 3.225 oz Body Mass Index (BMI) 36.3 Intake & Output: Intake and Output for Last 24 Hours 01/23/24 01/24/24 01/25/24 23:59 23:59 23:59 Intake Total 2324 / 2324 Output Total 1500 / 1500 Balance 824 / 824 Lab / Micro Data 01/12/24 08:13 01/12/24 08:13 Labs: Laboratory Results - last 24 hr 01/25/24 05:58: POC Glucose 69 L Micro: Microbiology 01/12/24 08:13 Swab (Method) Nasal Screen MRSA/MSSA - Final Radiography Diagnostic Testing: Radiology Impression Spine X-Ray 01/25/24 13:10 IMPRESSION: The localization instrument is seen posterior to the L5-S1 disc space level. Electronically Signed: Arturo Sargent MD at 15:36 EDT , Spine X-Ray 01/25/24 13:26 IMPRESSION: Status post 3 and 60 degree fusion at the L5-S1 level with prosthetic disc placement Electronically Signed: Arturo Sargent MD at 15:04 EDT , Physical Exam Narrative Physical Examination: General: Awake, alert, oriented x 3 and cooperative, laying on her right side but seated upright in the medical surgical bed, watching TV, eating Jell-O, currently notes her pain to the lumbar region at the surgical intervention site 8 out of 10 in severity, shooting pains more severe with movement. Skin: Normal color, normal turgor, no icterus, no cyanosis except for recent R with dressing in place with no drainage. HEENT: AT/NC, EOMI, PERRLA, mildly dry MM. Lungs: CTA bilaterally, moderate effort, mild decrease BL bases, no rales, ronchi or wheezing. Heart: Regular rate and rhythm; no gallop, rub audible. Abdomen: Soft, obese, NTTP, ND, mildly hyperactive BS. Extremities: No cyanosis, clubbing, or edema. Neurological: Patient awake, alert, oriented as noted, cognitive function intact; pupils equally reactive to light and accommodation, cranial nerves grossly normal, moving all 4 extremities, no focal deficits, sensation intact, peripheral pulses intact, lumbar dressing in place with no drainage, strength accordingly moderately to severely globally decreased. Psychiatric: Affect appears mildly fatigued otherwise normal, no acute evidence of depressive or anxiety feelings. Assessment & Plan Assessment/Plan (1) Herniation of intervertebral disc between L5 and S1: PLAN: Plan The patient is a 38 y/o F w/ PMHx: Obesity, Rheumatoid arthritis, Anxiety and Depression, Former tobacco use->vaping, RLS who presents to the [facility] on 01/25/24 with history of ongoing intractable lumbar back pain despite outpatient injections and interventions. #1. Intractable lumbar back pain with herniated disc L5-S1, failed outpatient conservative interventions: Failed conservative therapies and treatments, admitted per Dr. Diehl, status post posterior lumbar fusion L5-S1, lumbar laminectomy L5-S1, internal fixation and bone allograft, post-operative pain management, recommend continuation patient chronic gabapentin regimen with increase as needed, bowel regimen, DVT Prophylaxis, PT/OT/CM per surgery discretion. #2. Rheumatoid arthritis: Given recent surgical invention would continue to hold methotrexate and Plaquenil, resume once cleared per surgery. #3. Anxiety and depression: We will continue patient on fluoxetine regimen. #4. Obesity: Weight loss and lifestyle changes encouraged. #5. Restless leg syndrome: Per current list on regimen, may add Requip or si milar agent if needed. #6. Nicotine Vaping Abuse: Encouraged cessation, inpatient consultation per RT, NR if desired. #7. DVT prophylaxis: SCDs, chemoprophylaxis per surgery discretion given recent OR. Charges/Coding Visit Charges Inpatient E&M: 47737 Subs Hosp L3
--- NOTE | 2024-01-25 21:03 | OP.PCM_ITS ---
Report of Operation Date of Procedure: 01/25/24 Pre-Operative Diagnosis: Herniated disc L5-S1 on the left with intractable low back pain and leg pain Post-Operative Diagnosis: Same Surgery/Procedure Performed:: #1 anterior lumbar interbody fusion L5-S1 CPT code 14955 #2 anterior plate fixation L5-S1 CPT code 45826/59 #3 insertion of anterior cage CPT code 48784 #4 bone marrow aspirate from right iliac crest CPT code 12708 #5 allograft bone for cage CPT code 09210 Surgeon: Co-surgeons: Dr. Diehl, Dr. Lovelace Type of Anesthesia: General Description of Procedure: HPI: Patient is a 38-year-old female evaluated by Dr. Diehl for L5-S1 disc herniation. She is felt to be appropriate for anterior lumbar interbody fusion vascular surgery services are requested for exposure and mobilization of the abdominal great vessels. Description of procedure: Upon obtaining form consent and verification correct patient procedure site patient taken to the operating room where she was placed under general anesthesia. She was then positioned prepped and draped in usual sterile fashion and timeout is performed. Bone marrow was aspirated from the right iliac crest and passed off the field for processing to use with bone graft. Next a transverse incision was made in the left lower quadrant and Bovie electrocautery was dissect down through the subcutaneous tissue to the level the fascia. Self-retaining retractors then put in position and the fascia was incised transversely with relaxing incisions inferior medially and superior laterally. The rectus muscle was then mobilized circumferentially with care taken to elevate the inferior epigastric vessels with the muscle. This was then retracted medially and blunt dissection used to develop a plane between the peritoneum and the posterior aspect of the abdominal wall. Once this is been mobilized medially the posterior sheath was incised with Metzenbaum scissors and further mobilization of the abdominal contents performed to the midline. A wet lap sponge was then placed to maintain positioning in the Syneframe self- retaining retractor was brought onto the field and put into position. Retractor blades were then placed in the lap sponge removed. Further dissection was performed to mobilize the left iliac artery and vein and retract them laterally exposing the L5-S1 disc space. The middle sacral vessels were identified, ligated, and divided. Further soft tissue was then mobilized from the anterior surface of the disc space and retractors position for optimal visualization. At this point Dr. Diehl scrubbed in and performed the discectomy and cage insert which she will describe in further detail separately. Upon completion the retractors were relaxed and the iliac vessels evaluated. The left iliac artery was normal in appearance with a palpable pulse. The left iliac vein was normal in appearance and compressible with no evidence of thrombus. Retractors were then withdrawn and the abdominal contents allowed to return to their manzanita position. The fascia was then closed with STRATAFIX sutures and the superficial wound irrigated with saline. The incision was then closed with 2-0 Vicryl, 3-0 Vicryl, 4 Monocryl and Dermabond for the skin. At this point patient was repositioned for posterior approach with Dr. Diehl which she will dictate separately.
[2024-01-25] MEDS: Cefazolin 1 GM/50 ML BAG IV (21:08)
[2024-01-25] MEDS: Gabapentin 100 MG Capsule PO (21:09)
[2024-01-25] MEDS: Lactated Ringers 1,000 ML 100 ML IV (21:11)
[2024-01-25] MEDS: 0.9% Saline Lock 10 ML Syringe IV (21:13)
[2024-01-26] MEDS: Cefazolin 1 GM/50 ML BAG IV (04:59)
[2024-01-26] MEDS: Gabapentin 100 MG Capsule PO ×3 (04:59→21:07)
[2024-01-26 05:00] VITALS: BP 127/75; PULSE 91; RESP 16; TEMP 36.2; O2SAT 97
[2024-01-26] MEDS: Morphine 4 MG/ML Syringe IV ×6 (05:02→23:17)
[2024-01-26] MEDS: Acetaminophen 500 MG Tablet 1000 MG PO ×3 (05:02→21:07)
[2024-01-26] MEDS: 0.9% Saline Lock 10 ML Syringe IV ×7 (05:02→23:16)
[2024-01-26] MEDS: Ondansetron 4 MG/2 ML Vial IV (06:56)
[2024-01-26 08:09] VITALS: O2SAT 94
[2024-01-26] MEDS: Fluoxetine HCl 40 MG CAPSULE 80 MG PO (08:38)
[2024-01-26 10:01] VITALS: BP 133/88; PULSE 92; RESP 18; TEMP 36.9; O2SAT 100
--- NOTE | 2024-01-26 10:03 | PN_ITS ---
Subjective Subjective Patient seen and examined. She complained of pain at site of surgery, rating it 10/10. She denies any shortness of breath, cough, chest pain, nausea, vomiting or any other symptoms. Review of systems is otherwise negative. Objective Data Objective Data Vital Signs: Vital Signs Temp Pulse Resp BP Pulse Ox O2 Del Method O2 Flow Rate 97.2 F L 91 16 127/75 H 94 Room Air 4 01/26/24 05:00 01/26/24 05:00 01/26/24 05:00 01/26/24 05:00 01/26/24 08:09 01/26/24 08:41 01/25/24 17:00 Oxygen Flow Rate (L/min) 4 Oxygen Delivery Method Room Air Weight: 239 lb 3.225 oz Body Mass Index (BMI) 36.3 Intake & Output: Intake and Output for Last 24 Hours 01/24/24 01/25/24 01/26/24 23:59 23:59 23:59 Intake Total 2616.25 / 2616.25 583.17 / 583.17 Output Total 1500 / 2600 1750 / 1750 Balance 1116.25 / 16.25 -1166.83 / -1166.83 Lab / Micro Data 01/12/24 08:13 01/12/24 08:13 Micro: Microbiology 01/12/24 08:13 Swab (Method) Nasal Screen MRSA/MSSA - Final Radiography Diagnostic Testing: Radiology Impression Spine X-Ray 01/25/24 06:30 IMPRESSION: The localization instrument is seen anterior to the L5-S1 disc space level. Electronically Signed: Arturo Sargent MD at 8:27 EDT , Spine X-Ray 01/25/24 12:00 IMPRESSION: Intraoperative guidance for anterior fusion at L5-S1. Electronically Signed: Humza Rosales MD at 7:00 EDT , Spine X-Ray 01/25/24 13:10 IMPRESSION: The localization instrument is seen posterior to the L5-S1 disc space level. Electronically Signed: Arturo Sargent MD at 15:36 EDT , Spine X-Ray 01/25/24 13:26 IMPRESSION: Status post 3 and 60 degree fusion at the L5-S1 level with prosthetic disc placement Electronically Signed: Arturo Sargent MD at 15:04 EDT , Physical Exam Const alert, oriented x3 and no apparent distress General Appearance: cooperative HEENT normocephalic, head/scalp atraumatic, moist oral mucous membranes and oropharynx normal Eyes PERRL and EOMs intact bilaterally Neck no lymphadenopathy and supple Lymph Lymphatic: no lymphadenopathy noted and no lymphedema noted Resp normal respiratory effort, normal air movement and clear to auscultation bilaterally Cardio regular rate, regular rhythm, S1 normal heart sound, S2 normal heart sound and no murmurs GI normal to inspection, nondistended, normoactive bowel sounds and soft to pal pation GI Narrative: intact dressing over lower abdomen at site of surgery. Extremity normal capillary refill, no clubbing, cyanosis or edema and no calf tenderness General Extremity: no tenderness to palpation of joints or extremities Skin General Skin Exam: no breakdown Neuro CN's II-XII intact bilaterally and no focal motor deficits Motor Exam: strength 5/5 throughout and general weakness Psych thought process normal and cooperative Appearance: appropriate Assessment & Plan Assessment/Plan (1) Herniation of intervertebral disc between L5 and S1: PLAN: Plan #Herniated disc of L5-S1 s/p PLIF and lumbar laminectomy of L5-S1 * today is POD 1 * PT/OT On board * management as per spine surgery * #Rheumatoid arthritis: Methotrexate and Plaquenil on hold. Resume when okay with surgery #Anxiety and depression: On fluoxetine #Obesity: BMI is 36.4. Complicates acute care, expected recovery and prognosis. DVT prophylaxis: SCDs. As per primary team Charges/Coding Visit Charges Inpatient E&M: 00344 Subs Hosp L2
[2024-01-26] MEDS: traMADol 50 MG Tablet PO (10:11)
--- NOTE | 2024-01-26 11:28 | CASEMGMT ---
LILIA CHONG Assessment Face to Face with patient for initial transition planning/care coordination assessment. RN CM introduced self and role at [facility], pt voices understanding. Pt is A&Ox4 and is resting comfortably in bed and is calm. Care providers, pharmacy, and demographics verified. Admitting dx: ERAS 360 Lumbar Fusion L5-S1 PCP: Mary Parra Specialists: Sharlene (Rheumatology), Melchor Diehl (PM) Preferred Pharmacy: [facility] Insurance: ANTHEM Prescription Benefit: Yes LNOK: Glory Emanuel (M), Marco Emanuel (F) Living Arrangements: Pt lives with her 6 y/o daughter in a ground level apartment with 2 steps to enter ADLs/IADLs: Ind Transportation: Self DME: BP equipment. 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 Pt denies other DME uses or needs HHC/SNF: denies history or needs Pt?s goal: Home no needs Plan: 6-Click is 22. PT note is pending but the pt states PT saw her this morning and that it went well. Pt denies the need for HHC and OP therapy at this time. Pt states that she wishes to return home with no additional needs at time of assessment. CM to follow for safe DC from [facility]. Demetria Farmer RN, CM
[2024-01-26 14:45] VITALS: BP 138/84; PULSE 93; RESP 18; TEMP 37; O2SAT 100
[2024-01-26] MEDS: oxyCODONE 5 MG Tablet PO ×2 (16:38→21:07)
[2024-01-26 18:25] VITALS: BP 119/77; PULSE 103; RESP 16; TEMP 36.9; O2SAT 97
[2024-01-26 21:05] VITALS: BP 125/71; PULSE 94; RESP 16; TEMP 36.5; O2SAT 96
[2024-01-26] MEDS: traZODone 50 MG Tablet PO (22:39)
[2024-01-27 03:20] VITALS: BP 119/76; PULSE 88; RESP 16; TEMP 36.9; O2SAT 96
[2024-01-27] MEDS: oxyCODONE 5 MG Tablet PO ×3 (03:21→19:43)
[2024-01-27] MEDS: Morphine 4 MG/ML Syringe IV ×2 (05:21→10:07)
[2024-01-27] MEDS: 0.9% Saline Lock 10 ML Syringe IV ×4 (05:22→17:35)
[2024-01-27] MEDS: Gabapentin 100 MG Capsule PO ×3 (05:22→22:46)
[2024-01-27] MEDS: Acetaminophen 500 MG Tablet 1000 MG PO ×3 (05:22→22:46)
[2024-01-27 08:35] VITALS: O2SAT 93
[2024-01-27] MEDS: Fluoxetine HCl 40 MG CAPSULE 80 MG PO (09:01)
[2024-01-27 09:04] VITALS: BP 111/81; PULSE 96; RESP 18; TEMP 36.6; O2SAT 97
--- NOTE | 2024-01-27 11:31 | PN_ITS ---
Subjective Subjective Patient seen and examined. He had no active complaint. Pain was better controlled today. Review of systems otherwise negative. She has remained hemodynamically stable. Objective Data Objective Data Vital Signs: Vital Signs Temp Pulse Resp BP Pulse Ox O2 Del Method O2 Flow Rate 97.9 F 96 18 111/81 H 97 Room Air 4 01/27/24 09:04 01/27/24 09:04 01/27/24 09:04 01/27/24 09:04 01/27/24 09:04 01/27/24 09:08 01/25/24 17:00 Oxygen Flow Rate (L/min) 4 Oxygen Delivery Method Room Air Weight: 239 lb 3.225 oz Body Mass Index (BMI) 36.3 Intake & Output: Intake and Output for Last 24 Hours 01/25/24 01/26/24 01/27/24 23:59 23:59 23:59 Intake Total 2616.25 / 2616.25 583.17 / 583.17 Output Total 1500 / 2600 1750 / 1750 Balance 1116.25 / 16.25 -1166.83 / -1166.83 Lab / Micro Data 01/12/24 08:13 01/12/24 08:13 Micro: Microbiology 01/12/24 08:13 Swab (Method) Nasal Screen MRSA/MSSA - Final Physical Exam Const alert, oriented x3 and no apparent distress General Appearance: cooperative HEENT normocephalic, head/scalp atraumatic, moist oral mucous membranes and oropharynx normal Eyes PERRL and EOMs intact bilaterally Neck no lymphadenopathy and supple Lymph Lymphatic: no lymphadenopathy noted and no lymphedema noted Resp normal respiratory effort, normal air movement and clear to auscultation bilaterally Cardio regular rate, regular rhythm, S1 normal heart sound, S2 normal heart sound and no murmurs GI normal to inspection, nondistended, normoactive bowel sounds and soft to palpation GI Narrative: intact dressing over lower abdomen at site of surgery. Extremity normal capillary refill, no clubbing, cyanosis or edema and no calf tenderness General Extremity: no tenderness to palpation of joints or extremities Skin General Skin Exam: no breakdown Neuro CN's II-XII intact bilaterally and no focal motor deficits Motor Exam: strength 5/5 throughout and general weakness Psych thought process normal and cooperative Appearance: appropriate Assessment & Plan Assessment/Plan (1) Herniation of intervertebral disc between L5 and S1: PLAN: Plan #Herniated disc of L5-S1 s/p PLIF and lumbar laminectomy of L5-S1 * today is POD 2 * PT/OT On board * management as per spine surgery * #Rheumatoid arthritis: Methotrexate and Plaquenil on hold. Resume when okay with surgery #Anxiety and depression: On fluoxetine #Obesity: BMI is 36.4. Complicates acute care, expected recovery and prognosis. DVT prophylaxis: SCDs. As per primary team Charges/Coding Visit Charges Inpatient E&M: 93131 Subs Hosp L2
[2024-01-27] MEDS: HYDROmorphone 0.5 MG/0.5 ML SYRINGE IV ×3 (13:31→22:55)
[2024-01-27 14:31] VITALS: BP 127/85; PULSE 89; RESP 18; TEMP 36.8; O2SAT 99
[2024-01-27] MEDS: traZODone 50 MG Tablet PO (22:46)
[2024-01-27 22:49] VITALS: BP 115/70; PULSE 90; RESP 16; TEMP 36.4; O2SAT 94
[2024-01-28 04:54] VITALS: BP 105/62; PULSE 81; RESP 16; TEMP 36.6; O2SAT 92
[2024-01-28] MEDS: Acetaminophen 500 MG Tablet 1000 MG PO ×2 (04:55→13:17)
[2024-01-28] MEDS: oxyCODONE 5 MG Tablet PO ×3 (04:57→13:17)
[2024-01-28] MEDS: Gabapentin 100 MG Capsule PO ×2 (04:57→13:17)
[2024-01-28 07:11] VITALS: O2SAT 94
[2024-01-28] MEDS: Fluoxetine HCl 40 MG CAPSULE 80 MG PO (09:15)
[2024-01-28] MEDS: Ensure Surgery 237 ML LIQUID PO (09:15)
[2024-01-28 09:23] VITALS: BP 130/90; PULSE 84; RESP 16; TEMP 36.5; O2SAT 95
--- NOTE | 2024-01-28 09:33 | PN_ITS ---
Subjective Subjective Patient seen and examined. She has no complaints. Pain was well-controlled. Review of systems otherwise negative. Objective Data Objective Data Vital Signs: Vital Signs Temp Pulse Resp BP Pulse Ox O2 Del Method O2 Flow Rate 97.7 F L 84 16 130/90 H 95 Room Air 4 01/28/24 09:23 01/28/24 09:23 01/28/24 09:23 01/28/24 09:23 01/28/24 09:23 01/28/24 09:23 01/25/24 17:00 Oxygen Flow Rate (L/min) 4 Oxygen Delivery Method Room Air Weight: 239 lb 3.225 oz Body Mass Index (BMI) 36.3 Intake & Output: Intake and Output for Last 24 Hours 01/26/24 01/27/24 01/28/24 23:59 23:59 23:59 Intake Total 583.17 / 583.17 400 / 400 Output Total 1750 / 1750 Balance -1166.83 / -1166.83 400 / 400 Lab / Micro Data 01/12/24 08:13 01/12/24 08:13 Micro: Microbiology 01/12/24 08:13 Swab (Method) Nasal Screen MRSA/MSSA - Final Physical Exam Const alert, oriented x3 and no apparent distress General Appearance: cooperative and well developed HEENT normocephalic, head/scalp atraumatic, moist oral mucous membranes and oropharynx normal Eyes PERRL and EOMs intact bilaterally Neck no lymphadenopathy and supple Lymph Lymphatic: no lymphadenopathy noted and no lymphedema noted Resp normal respiratory effort, normal air movement and clear to auscultation bilaterally Cardio regular rate, regular rhythm, S1 normal heart sound, S2 normal heart sound and no murmurs GI normal to inspection, nondistended, normoactive bowel sounds and soft to palpati on GI Narrative: intact dressing over lower abdomen at site of surgery. Extremity normal capillary refill, no clubbing, cyanosis or edema and no calf tenderness General Extremity: no tenderness to palpation of joints or extremities Skin General Skin Exam: no breakdown Neuro CN's II-XII intact bilaterally and no focal motor deficits Motor Exam: strength 5/5 throughout and general weakness Psych thought process normal and cooperative Appearance: appropriate Assessment & Plan Assessment/Plan (1) Herniation of intervertebral disc between L5 and S1: PLAN: Plan #Herniated disc of L5-S1 s/p PLIF and lumbar laminectomy of L5-S1 * today is POD 3 * PT/OT On board * management as per spine surgery * #Rheumatoid arthritis: Methotrexate and Plaquenil on hold. Resume when okay with surgery #Anxiety and depression: On fluoxetine #Obesity: BMI is 36.4. Complicates acute care, expected recovery and prognosis. DVT prophylaxis: SCDs. As per primary team Charges/Coding Visit Charges Inpatient E&M: 29187 Subs Hosp L2
[2024-01-28] MEDS: 0.9% Saline Lock 10 ML Syringe IV (10:37)
[2024-01-28] MEDS: HYDROmorphone 0.5 MG/0.5 ML SYRINGE IV (10:37)
--- NOTE | 2024-01-28 14:40 | DCINST_ITS ---
Discharge Instructions Activity May shower in (days): 2 May resume sexual activity in: 4-6 weeks Lifting Restrictions: 15# Dressing / Incision Remove Dressing in: 1 day Cleanse incision/area with: Soap & Water Follow Up Care Test Results: Test results from this visit will be discussed in further detail at your follow- up appointment, if applicable. Discharge Plan Admission Admit Date/Time: 01/25/24 05:23 Primary Reason for Your Visit: back surgery Attending Provider: Chris Diehl Primary Care Provider: Mary Parra Consulting Providers: Monalisa San Discharge Orders/Prescriptions Prescriptions: No Action hydroxychloroquine [Plaquenil] 200 mg tablet 200 mg PO BID folic acid 1 mg tablet 2 mg PO QHS methotrexate sodium 2.5 mg tablet 15 mg PO TU tizanidine [Zanaflex] 4 mg capsule 4 mg PO QHS PRN (Reason: Muscle Pain) fluoxetine [Prozac] 20 mg capsule 80 mg PO DAILY ascorbic acid (vitamin C) [Vitamin C] 500 mg Tablet 1 g PO DAILY trazodone 100 mg tablet 50 mg PO QHS gabapentin 100 mg capsule 100 mg PO TID Patient Comments: TAKE ONE CAPSULE BY MOUTH THREE TIMES DAILY Nucynta 75 mg tablet 75 mg PO TID Other Ambulatory Orders: 12 Lead EKG (Routine) Timeframe: 20240112 Location: None Selected Ordered By: Dr. Chris Diehl Referrals / Follow Up: Mary Parra PA [Primary Care Provider] - Disposition Disposition (needs filled in before D/C Order can be placed): Home, Self Care
--- NOTE | 2024-01-28 14:42 | PCM.DC.SUM ---
Providers Date of Admission: 01/25/24 Primary Care Physician: CARON Vidal Attending Physician: This is discharge summary on Elda Emanuel. This patient was admitted on Wednesday 3 days ago. She underwent 360 degree fusion with laminectomy of her L5-S1 level. Initially she had somewhat of an ileus but it is now resolved. She has bowel sounds she is actually and has flatulence and actually had a slight bowel movement today. I gave her directions regarding her activities when she gets goes home. She knows when to shower she already has an appointment to return to my office. I also will give her some Percocet for pain control at home. This is the end of discharge summary on Elda Emanuel. This Dr. Diehl dictating. Consultations 01/25/24 17:59 Consult: Hospitalist Routine Consulting Provider: Hernando Krueger Reason for Consult: Medical Management EMERGENT Consult: No MD Notified: Yes Date Notified: 01/25/24 Time Notified: 18:32 Method of Notification: Text Reason For Visit: ERAS 360 Lumbar Fusion L5-S1 with l Diagnosis Discharge Diagnosis (1) Herniation of intervertebral disc between L5 and S1: Status: Acute Code(s): M51.27 - Other intervertebral disc displacement, lumbosacral region Medications at Discharge Home Medications folic acid 1 mg tablet 2 mg PO QHS SUPPLEMENT 04/22/22 hydroxychloroquine 200 mg tablet (Plaquenil) 200 mg PO BID RA 04/22/22 methotrexate sodium 2.5 mg tablet 15 mg PO 04/22/22 tizanidine 4 mg capsule (Zanaflex) 4 mg PO QHS PRN Muscle Pain 04/22/22 fluoxetine 20 mg capsule (Prozac) 80 mg PO DAILY MOOD 10/06/22 ascorbic acid (vitamin C) 500 mg tablet (Vitamin C) 1 g PO DAILY SUPPLEMENT 03/09/23 gabapentin 100 mg capsule 100 mg PO TID NERVE PAIN 03/09/23 trazodone 100 mg tablet 50 mg PO QHS SLEEP 03/09/23 tapentadol 75 mg tablet (Nucynta) 75 mg PO TID PAIN 01/10/24 oxycodone-acetaminophen 5 mg-325 mg tablet 1 tab PO TID PRN pain 10 days #30 tabs 01/28/24 oxycodone-acetaminophen 5 mg-325 mg tablet 1 tab PO TID PRN pain 10 days #30 tabs 01/28/24 Weight / BMI Weight Weight: 239 lb 3.225 oz Body Mass Index (BMI) 36.3 ABG / Lab / Microbiology Data 01/12/24 08:13 01/12/24 08:13 Microbiology: Microbiology 01/12/24 08:13 Swab (Method) Nasal Screen MRSA/MSSA - Final D/C Instructions May shower in (days): 2 May resume sexual activity in: 4-6 weeks Cleanse incision/area with: Soap & Water Meaningful Use Info Meaningful Use Meaningful Use Diagnoses (Choose all that apply): None applicable Ischemic Stroke Statin Dosing Therapy Reference: STATIN DOSE THERAPY REFERENCE: * Patients > 75 years receive moderate or high dose statin therapy. * Patients 75 years or YOUNGER should receive HIGH intensity statin dose unless contraindicated. You will be required to document reason for non-treatment if statin daily dose does not meet guidelines. HIGH DOSE STATIN THERAPY DAILY Atorvastatin > than or = to 40 mg Rosuvastatin > than or = to 20 mg Amlodipine + Atorvastatin > than or = to 2.5/40 mg Ezetimibe + Simvastatin 10/80 mg Simvastatin 80mg Discharge Plan Admission Admit Date/Time: 01/25/24 05:23 Primary Reason for Your Visit: back surgery Attending Provider: Chris Diehl Primary Care Provider: Mary Parra Consulting Providers: Monalisa San Discharge Orders/Prescriptions Prescriptions: No Action hydroxychloroquine [Plaquenil] 200 mg tablet 200 mg PO BID folic acid 1 mg tablet 2 mg PO QHS methotrexate sodium 2.5 mg tablet 15 mg PO TU tizanidine [Zanaflex] 4 mg capsule 4 mg PO QHS PRN (Reason: Muscle Pain) fluoxetine [Prozac] 20 mg capsule 80 mg PO DAILY ascorbic acid (vitamin C) [Vitamin C] 500 mg Tablet 1 g PO DAILY trazodone 100 mg tablet 50 mg PO QHS gabapentin 100 mg capsule 100 mg PO TID Patient Comments: TAKE ONE CAPSULE BY MOUTH THREE TIMES DAILY Nucynta 75 mg tablet 75 mg PO TID oxycodone-acetaminophen 5-325 mg tablet 1 tab PO TID PRN (Reason: pain) 10 Days Qty: 30 0RF oxycodone-acetaminophen 5-325 mg tablet 1 tab PO TID PRN (Reason: pain) 10 Days Qty: 30 0RF Other Ambulatory Orders: 12 Lead EKG (Routine) Timeframe: 20240112 Location: None Selected Ordered By: Dr. Chris Diehl Referrals / Follow Up: Mary Parra, PA [Primary Care Provider] - Disposition Disposition (needs filled in before D/C Order can be placed): Home, Self Care
--- NOTE | 2024-01-28 14:44 | PCM.PN.ORT ---
Subjective Subjective Patient is doing well today. She reports complete relief of her left leg pain. Per her dressings are both dry. Neurologically she is intact. She has had flatulence now and I small bowel movement. Instructions were given. She will be discharged today and will return to my office on the predetermined date. Objective Data Objective Data Vital Signs: Vital Signs Temp Pulse Resp BP Pulse Ox O2 Del Method O2 Flow Rate 97.7 F L 84 16 130/90 H 95 Room Air 4 01/28/24 09:23 01/28/24 09:23 01/28/24 09:23 01/28/24 09:23 01/28/24 09:23 01/28/24 09:23 01/25/24 17:00 Oxygen Flow Rate (L/min) 4 Oxygen Delivery Method Room Air Weight: 239 lb 3.225 oz Body Mass Index (BMI) 36.3 Intake & Output: Intake and Output for Last 24 Hours 01/26/24 01/27/24 01/28/24 23:59 23:59 23:59 Intake Total 583.17 / 583.17 400 / 400 Output Total 1750 / 1750 Balance -1166.83 / -1166.83 400 / 400 Lab / Micro Data 01/12/24 08:13 01/12/24 08:13 Micro: Microbiology 01/12/24 08:13 Swab (Method) Nasal Screen MRSA/MSSA - Final
--- NOTE | 2024-01-28 14:50 | CASEMGMT ---
RN CM into pt room, pt denies any homegoing needs. Pt ready for dc.
[2024-01-28 15:06] VITALS: BP 128/86; PULSE 86; RESP 16; TEMP 36.6; O2SAT 97
== END 2024-01-28 17:01 | disposition home or self-care (01) | DRG 455 ==
LOC: ACINP 05:24 → MS3 17:16
PROVIDERS: Admitting Provider Orthopaedic Surgery; PCP Physician Assistant; Referring Provider Orthopaedic Surgery; Visit Provider Orthopaedic Surgery
PROC: 0SG30A0 Fusion of Lumbosacral Joint with Interbody Fusion Device, Anterior Approach, Anterior Column, Open Approach (ICD-10-PCS; principal; 2024-01-25 07:00)
DX: M51.27 Other intervertebral disc displacement, lumbosacral region (principal); E66.9 Obesity, unspecified; M06.9 Rheumatoid arthritis, unspecified; F32.A Depression, unspecified; G25.81 Restless legs syndrome; M47.816 Spondylosis without myelopathy or radiculopathy, lumbar region; M79.7 Fibromyalgia; F41.9 Anxiety disorder, unspecified; F17.290 Nicotine dependence, other tobacco product, uncomplicated; Z68.36 Body mass index [BMI] 36.0-36.9, adult; Z79.899 Other long term (current) drug therapy
CPT/HCPCS: 36415; 72020; 80048; 82962; 83735; 85025; 86703; 86706; 86708; 86803; 87081; 88304; 93005; 94668; 97162; 99252; 99406; A4648; C1713; J7120; A4216; G0463; J2405

== ENCOUNTER → 2024-07-11 | Outpatient (CLI) | payer OTHER, SELFPAY ==
[2024-07-11 15:26] LABS: Amphetamine Urine VISTA NEGATIVE (<1000 ng/mL); Barbiturate Urine VISTA NEGATIVE (< 200 ng/mL); Benzodiazepine Urine VISTA NEGATIVE (< 200 ng/mL); Cocaine Urine VISTA NEGATIVE (< 300 ng/mL); Ecstacy Urine VISTA NEGATIVE (< 500 ng/mL); Methadone Urine VISTA NEGATIVE (< 300 ng/mL); PCP Urine VISTA NEGATIVE (< 25 ng/mL); THC Urine VISTA NEGATIVE (< 50 ng/mL); Vista UDS pH Range 6
== END | disposition home or self-care (01) ==
PROVIDERS: PCP Physician Assistant; Referring Provider Anesthesiology Pain Medicine; Visit Provider Anesthesiology Pain Medicine
DX: F11.20 Opioid dependence, uncomplicated (principal)
CPT/HCPCS: 80307

== ENCOUNTER 2024-07-20 10:30 | Outpatient (RCR) | payer BC, OTHER, SELFPAY ==
--- NOTE | 2024-06-19 17:32 | HP.PTEVAL_ITS ---
Patient's Visit Information Visit Information Visit Information: ZACH POLANCO is a 38 year old F referred to Physical Therapy by Dr. Joce Dahl MD with a diagnosis of LUMBAR RADICULOPATHY. Date of Evaluation: 06/19/24 Physical Therapist: Jeffry Davis, PT, Cert MDT, OCS Visit Plan Frequency: 2x /Week Duration: 4 Weeks Plan: H/O LUMBAR FUSION 01/24 PT INTERVENTION DLS ,POSTURAL EX'S , LE FLEXABILITY ,POSTURE /BODY MECHANICS AND ACTIVITY MODIFICATIONS Subjective Subjective: This 38 y/o female presents to physical therapy with lumbar radi culopathy . Patient has h/o lumbar fusion L5-S1 with [address] Diehl January 25 2024. Patient was doing good ,no PT. Patient had HNP prior to surgery. Pain started to aggravate ~ 1 month insidious onset .Patient noticed pain pain back to right Glut . Seen Dr Dahl recommended PT and MRI . x-rays looked with hardware ,otherwise DDD. Patient sees pain management ~ couple has had injection epidural in past. Pain medication. Aggravating factors sitting ,bending ,lifting twisting. Alleviating factors heat and TENS. Occasionally walking .Coughing/sneezing-. Bowel/bladder-. Sleeping okay . No abnoram night pain. Denies paresthesia/tingling.Patient pain affects QOL and function/job demands. Patient goals to decrease pain and get MRI. SOCAIL: marrried VOCATION: [employer] Pain Bilateral Back: Pain Intensity (Out of 10): 6 Right Hip: Pain Intensity (Out of 10): 6 Pain Intensity Range: 10 Objective Objective: POSTURE: WFL PALAPTION: tender Right SI/LS NEURO: denies paresthesia/tingling ,reflexes L3-4,L4-5,L5-S1 2/3 SYMMETRIES: align MMT: quads/hams/hip 4/5 ,ankle 5/5 FLEXABILITY: hamstrings WFL LUMBAR ROM: flexion WFL ,extension min loss ,side glides min loss Special Tests L/S Slump test left side: Negative L/S Slump test right side: Negative L/S Left Straight Leg Raise: Negative L/S Right Straight Leg Raise: Negative L/S Left Femoral Nerve Tension: Negative L/S Right Femoral Nerve Tension: Negative Lumbar Standing: Flexion - Mechanical Response: No effect Lumbar Standing: Flexion - Symptoms During Testing: Increases Lumbar Standing: Flexion - Symptoms After Testing: No worse Lumbar Standing: Extension - Mechanical Response: No effect Lumbar Standing: Extension - Symptoms During Testing: No effect Lumbar Standing: Extension - Symptoms After Testing: No effect Balance/Special Test Scores Oswestry Low Back Score: 17 Goals Goal 1:: Patient to be I with HEP for back Goal Time Frame: 4-6 Weeks Goal 2:: Patient to improve posture /body mechanics 90% of the t=ayala with job demands Goal Time Frame: 4-6 Weeks Goal 3:: Patient improve lumbar ROM for function of recovery for ADLS and job demands Goal Time Frame: 4-6 Weeks Goal 4:: Patient to improve back oswestry score by 5 points to improve QOL Goal Time Frame: 4-6 Weeks Goal 5:: Patient to demonstrate 50% improvement with function and ADLS Goal Time Frame: 4-6 Weeks Rehabilitation Potential Physical Therapy Diagnosis: This patient has h/o L5-S1 lumbar fusion January 24. Patient has pain has with positioning and motion testing affects job demands and housework tasks thus benefit from skilled PT Rehabilitation Potential: Good Anticipated Interventions Patient/Client Instruction: Educate patient on: Condition and Plan of Care For the Purpose of:: To decrease pain, To increase ROM, To improve muscle performance and motor function, To improve ability to perform ADL's, To increase tolerance to activity/condition/position, To improve ability of physical actions for home/community/work/leisure, To improve health of tissue, To decrease soft tissue restriction, To increase flexibility/ROM and To reduce risk of recurrence Therapeutic Exercise to Include: Strength training, Body mechanics, Postural training, Flexibilty training, Dynamic Lumbar Stabilization and Glendy Exercises For the Purpose of:: To decrease pain, To increase ROM, To improve nutrient delivery to tissue, To improve muscle performance and motor function, To increase tolerance to activity/condition/position, To improve ability of physical actions for home/community/work/leisure, To improve health of tissue, To decrease soft tissue restriction, To increase flexibility/ROM, To prevent re- injury and To improve tolerance to ADL's TENS: Yes IF ES: Yes Cryotherapy (ice pack, ice massage): Yes Thermo therapy (hot pack): Yes Ultrasound (thermal/non thermal): Yes For the Purpose of:: To decrease pain, To increase ROM, To improve health of tissue, To decrease soft tissue restriction and To increase flexibility/ROM Text: Thank you for the opportunity to evaluate your patient. For Medicare and Medicare HMO plans, please review the plan of care and approve it. It will need to be FAXED BACK to us at [phone] for Medicare purposes. For Medicare only, by signing this I certify the plan of care. Please let me know if there are questions or concerns regarding this plan of care. Physician Sig nature: Date:
--- NOTE | 2024-09-05 15:52 | HP.PTDCNRP_ITS ---
Patient Information Patient Information: ZACH POLANCO was seen in my office for initial evaluation on 06/19/24. The following Plan of Care was established for this patient: POC Established Initial Frequency: 2x /Week Initial Duration: 4 Weeks Anticipated Interventions Patient/Client Instruction: Educate patient on: Condition and Plan of Care For the Purpose of:: To decrease pain, To increase ROM, To improve muscle performance and motor function, To improve ability to perform ADL's, To increase tolerance to activity/condition/position, To improve ability of physical actions for home/community/work/leisure, To improve health of tissue, To decrease soft tissue restriction, To increase flexibility/ROM and To reduce risk of recurrence Therapeutic Exercise to Include: Strength training, Body mechanics, Postural training, Flexibilty training, Dynamic Lumbar Stabilization and Glendy Exercises For the Purpose of:: To decrease pain, To increase ROM, To improve nutrient delivery to tissue, To improve muscle performance and motor function, To increase tolerance to activity/condition/position, To improve ability of physical actions for home/community/work/leisure, To improve health of tissue, To decrease soft tissue restriction, To increase flexibility/ROM, To prevent re- injury and To improve tolerance to ADL's TENS: Yes IF ES: Yes Cryotherapy (ice pack, ice massage): Yes Thermo therapy (hot pack): Yes Ultrasound (thermal/non thermal): Yes For the Purpose of:: To decrease pain, To increase ROM, To improve health of tissue, To decrease soft tissue restriction and To increase flexibility/ROM Last Seen Last Seen: This patient was last seen in our office . Pertinent comments regarding their Physical therapy will appear below: At this point I will be discontinuing this patient from physical therapy. I would be happy to see this patient again in the future if found appropriate by the physician. Thank you! Jeffry Davis, PT, Cert MDT, OCS Balance/Gait/Functional tests Balance/Special Test Scores Oswestry Low Back Score: 17
== END 2024-07-20 19:00 | disposition home or self-care (01) ==
LOC: PT 10:30
PROVIDERS: PCP Physician Assistant; Referring Provider Orthopaedic Surgery Orthopaedic Surgery of the Spine; Visit Provider Orthopaedic Surgery Orthopaedic Surgery of the Spine
DX: M54.16 Radiculopathy, lumbar region (principal)
CPT/HCPCS: 97110; 97162

== ENCOUNTER → 2024-08-29 | Outpatient (CLI) | payer OTHER, SELFPAY ==
--- NOTE | 2024-08-29 06:38 | MRI_ITS ---
INDICATION: Persistant Pain after lumbar fusion EXAMINATION: MRI - MR Spine Lumbar WO/W Contrast TECHNIQUE: Multiplanar and multisequence MR images of the lumbar spine. IV Contrast Dosage and Agent IV 21ml clariscan COMPARISON: None. FINDINGS: VERTEBRAE: Vertebral body heights are preserved. Normal vertebral bodies and posterior elements. VERTEBRAL ALIGNMENT: No spondylolisthesis. There is preservation of the normal lumbar lordosis. CORD: Normal position and signal intensity of the conus medullaris. L1/L2: Normal disc height and morphology. Normal spinal canal, lateral recesses and neuroforamina. L2/L3: Normal disc height and morphology. Normal spinal canal, lateral recesses and neuroforamina. L3/L4: There is left foraminal disc herniation at L3-4 impinging on the left L3 nerve root. There is mild narrowing of the spinal canal and right neural foramen. There is moderate narrowing of the left neural foramen. L4/L5: There is moderate bilateral foramina narrowing due to circumferential disc bulge. L5/S1: Anterior fusion in good alignment. There is no significant stenosis of the spinal canal, lateral recesses and neuroforamina. SOFT TISSUES: Unremarkable. MRI/Spine Lumbar W/WO Contrast IMPRESSION: There is left foraminal disc herniation at L3-4 impinging on the left L3 nerve root. There is moderate bilateral foramina narrowing at L4-5 due to circumferential disc bulge. Electronically Signed: Philippe Jaramillo MD at 0:03 EST ,
== END | disposition home or self-care (01) ==
LOC: MRI 06:32
PROVIDERS: PCP Physician Assistant; Referring Provider Orthopaedic Surgery Orthopaedic Surgery of the Spine; Visit Provider Orthopaedic Surgery Orthopaedic Surgery of the Spine
DX: M43.27 Fusion of spine, lumbosacral region (principal)
CPT/HCPCS: 72158; A9575

== ENCOUNTER → 2025-05-01 | Outpatient (CLI) | payer OTHER, SELFPAY ==
[2025-05-01 10:15] LABS: Hematocrit 38.6 % (37-47); Hemoglobin 12.9 g/dL (12.0-15.0); Immature Granulocytes Count 0.020 X10^3/uL (0.0-0.0); Mean Corp Hgb Conc 33.4 g/dL (32-36); Mean Corpuscular Volume 94.1 fL (81-99); Mean Platelet Vol. 11.1 fl (6.2-12.0); NRBC Flagged by Analyzer 0 % (0-5); Platelet Count 241 K/mm3 (150-450); RBC Distribution Width CV 12.3 % (11.6-14.6); RBC Distribution Width SD 42.6 fl (35.1-43.9); Red Blood Count 4.10 M/mm3 (4.2-5.4); White Blood Count 6.9 K/mm3 (4.4-11.0)
[2025-05-01 10:41] LABS: AST(SGOT) 33 U/L (<=31); Alanine Aminotransfer ALT/SGPT 41 U/L (<=34); Albumin, Serum 4.1 g/dL (3.5-5.0); Alkaline Phosphatase 88 U/L (35-104); Anion Gap 10 (5-15); BUN 14 mg/dL (4-19); BUN/Creat Ratio 12.6 RATIO (10-20); Calcium,Total 8.9 mg/dL (7.6-11.0); Carbon Dioxide 22.8 mmol/L (21.0-32.0); Chloride 105 mmol/L (98-108); Globulin 2.3 g/dL (2.2-4.2); Glucose 76 mg/dL (70-99); Potassium 4.0 mmol/L (3.3-5.1)
== END | disposition home or self-care (01) ==
LOC: MTLAB 09:16
PROVIDERS: PCP Physician Assistant; Referring Provider Internal Medicine Rheumatology; Visit Provider Internal Medicine Rheumatology
DX: M06.4 Inflammatory polyarthropathy (principal); M79.7 Fibromyalgia; Z79.899 Other long term (current) drug therapy
CPT/HCPCS: 36415; 80053; 85025